=== PATIENT | male | born 1935 ===

== ENCOUNTER 2016-09-06 14:26 | Emergency (ER) | payer MEDICARE, OTHER ==
--- NOTE | 2016-09-06 14:34 | ED PDOC ---
Arrival/HPI - General Time Seen by Provider: 09/06/16 14:30 Historian: Patient - History of Present Illness Narrative History of Present Illness (Text): 09/06/16 14:31 80 y/o male, pmh including htn/hyperlipidemia/dm, nkda, c/o rt. heel pain x 1 month with no fall or trauma. Aching and sharp pain, non-radiating, aggravated by long hours of standing, no skin discoloration, no numbness or tingling, no fever or chills, no headache or night sweat, no palpitation, no other medical or psychological complaints. Past Medical History - Provider Review Nursing Documentation Reviewed: Yes - Past History Past History: No Previous - Infectious Disease Hx of Infectious Diseases: None - Tetanus Immunization Tetanus Immunization: Unknown - Cardiac Hx Hyperlipemia: Yes Hx Hypertension: Yes Hx Pacemaker: No - Neurological Hx Paralysis: No - HEENT Hx HEENT Disorder: ([place] uses hearing air left ear) - Endocrine/Metabolic Hx Diabetes Mellitus Type 2: Yes - Hematological/Oncological Hx Blood Transfusions: No - Musculoskeletal/Rheumatological Hx Back Pain: Yes Hx Falls: No - Psychiatric Hx Depression: No Hx Emotional Abuse: No Hx Physical Abuse: No Hx Substance Use: No - Past Surgical History Past Surgical History: No Previous - Surgical History Hx Orthopedic Surgery: Yes (right shoulder torn rotator cuff) - Anesthesia Hx Anesthesia Reactions: No Hx Malignant Hyperthermia: No - Suicidal Assessment Feels Threatened In Home Enviroment: No Family/Social History - Physician Review Nursing Documentation Reviewed: Yes Family/Social History: Unknown Family HX Smoking Status: Never Smoked Hx Alcohol Use: No Hx Substance Use: No Hx Substance Use Treatment: No Allergies/Home Meds Allergies/Adverse Reactions: Allergies No Known Allergies Allergy (Verified 07/08/12 13:39) Home Medications: Home Meds Medication Instructions Recorded Confirmed Atorvastatin Calcium 80 mg PO QPM 01/01/13 11/20/13 Multivitamin and Minerals1 1 tab PO DAILY 05/20/13 11/20/13 [Centrum] Insulin Glargine, Recombina 30 units SC DAILY 06/16/13 11/20/13 [Lantus] Metformin Hydrochloride [Metformin] 20,000 mg PO DAILY 10/04/13 11/20/13 Review of Systems - Review of Systems Constitutional: absent: Fatigue, Fevers Eyes: absent: Vision Changes ENT: absent: Hearing Changes Respiratory: absent: Cough, Sputum Cardiovascular: absent: Chest Pain Gastrointestinal: absent: Abdominal Pain, Nausea, Vomiting Musculoskeletal: Arthralgias. absent: Back Pain, Neck Pain, Joint Swelling, Myalgias Skin: absent: Rash, Pruritis, Skin Lesions, Laceration, Abscess, Ulcer, Cellulitis Neurological: absent: Headache, Dizziness, Focal Weakness Physical Exam Vital Signs Pulse Resp BP Pulse Ox 09/06/16 14:26 65 16 176/84 H 97 Pain Distress: Mild Mental Status: Positive for: Alert and Oriented X 3 - Systems Exam Head: Present: Atraumatic, Normocephalic Pupils: Present: PERRL Extroacular Muscles: Present: EOMI Conjunctiva: Present: Normal Mouth: Present: Moist Mucous Membranes Neck: Present: Normal Range of Motion Respiratory/Chest: Present: Clear to Auscultation, Good Air Exchange. No: Respiratory Distress, Accessory Muscle Use Cardiovascular: Present: Regular Rate and Rhythm, Normal S1, S2. No: Murmurs Abdomen: Present: Normal Bowel Sounds. No: Tenderness, Distention, Peritoneal Signs Back: Present: Normal Inspection Upper Extremity: Present: Normal Inspection. No: Cyanosis, Edema Lower Extremity: Present: Normal Inspection, Neurovascularly Intact, Capillary Refill < 2 s, Other (Rt. foot: +ttp on the plantar calcaneal region, skin intact , no laceration or abrasion, +DPPT pulsese, capillary refill< 2 seconds, neurovascular intact, negative karlo and sutton signs.). No: Edema, CALF TENDERNESS Neurological: Present: GCS=15, CN II-XII Intact, Speech Normal Skin: Present: Warm, Dry, Normal Color. No: Rashes Psychiatric: Present: Alert, Oriented x 3, Normal Insight, Normal Concentration Medical Decision Making ED Course and Treatment: 09/06/16 14:34 -rt. foot xray -tramadol 09/06/16 15:23 -xray show no fracture or dislocation but there is calcaneal spur. -Discharge home with hattie wrap, celebrex, avoid long hours of standing or excessive walking, follow up with your own pmd and product promoter sales person within 2 days, return to the ER for any new or worsening signs or symptoms. - RAD Interpretation Radiology Orders: 09/06/16 14:35 FOOT RIGHT 3 VIEWS ROUTINE [RAD] Stat PROCEDURE: Right Foot Radiographs. HISTORY: rt. foot sole heel pain x 1 month COMPARISON: None. FINDINGS: BONES: No fracture. Minute 1 mm inferior calcaneal spur. High plantar arch. Dorsal midfoot osseous hypertrophy. Hammertoe orientations. First metatarsal- phalangeal joint hypertrophic arthrosis with medial subcortical cyst. JOINTS: As above SOFT TISSUES: Normal. OTHER FINDINGS: None. IMPRESSION: No calcaneal fracture. Tiny inferior calcaneal spur. First metatarsal-phalangeal joint osteoarthrosis. 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 Disposition/Present on Arrival - Present on Arrival Any Indicators Present on Arrival: No History of DVT/PE: No History of Uncontrolled Diabetes: No Urinary Catheter: No History of Decub. Ulcer: No History Surgical Site Infection Following: None - Disposition Have Diagnosis and Disposition been Completed?: Yes Diagnosis: Plantar fasciitis, Calcaneal spur Disposition: HOME/ ROUTINE Disposition Time: 14:55 Patient Plan: Discharge Patient Problems: Current Active Problems Problem Status Onset Plantar fasciitis Acute Calcaneal spur Acute Condition: IMPROVED Additional Instructions: Discharge home with hattie wrap, celebrex, avoid long hours of standing or excessive walking, follow up with your own pmd and product promoter sales person within 2 days, return to the ER for any new or worsening signs or symptoms. Prescriptions: Celecoxib [CeleBREX] 100 mg PO BID PRN #14 cap PRN Reason: Other Referrals: Jacqueline Barba, [Primary Care Provider] - Follow up with primary Violet Hall DPM [Staff Provider] - Follow up with primary Forms: WORK NOTE
[2016-09-06 14:37] VITALS: BP 176/84
[2016-09-06] MEDS: TraMADol/Apap 37.5/325 mg Tab PO STA (15:16)
--- NOTE | 2016-09-06 15:20 | RAD ---
PROCEDURE: Right Foot Radiographs. HISTORY: rt. foot sole heel pain x 1 month COMPARISON: None. FINDINGS: BONES: No fracture. Minute 1 mm inferior calcaneal spur. High plantar arch. Dorsal midfoot osseous hypertrophy. Hammertoe orientations. First metatarsal-phalangeal joint hypertrophic arthrosis with medial subcortical cyst. JOINTS: As above SOFT TISSUES: Normal. OTHER FINDINGS: None. IMPRESSION: No calcaneal fracture. Tiny inferior calcaneal spur. First metatarsal-phalangeal joint osteoarthrosis.
[2016-09-06 15:41] VITALS: PULSE 66; RESP 17; O2SAT 98
[2016-10-21 09:51] VITALS: BMI 18.2
== END 2016-09-06 15:42 | disposition home or self-care (01) ==
LOC: ED 14:26
DX: M72.2 Plantar fascial fibromatosis (principal); M77.31 Calcaneal spur, right foot

== ENCOUNTER 2016-11-18 20:46 | Emergency (ER) | payer MEDICARE, OTHER ==
[2016-11-18 20:52] VITALS: TEMP 97.6; O2SAT 98
--- NOTE | 2016-11-18 21:11 | ED PDOC ---
Arrival/HPI - General Chief Complaint: Dizziness/Lightheaded Time Seen by Provider: 11/18/16 20:47 Historian: Patient - History of Present Illness Narrative History of Present Illness (Text): 11/18/16 21:07 Tomer Marquis is a 80 year old male, whose past medical history includes hypertension, hyperlipidemia, and diabetes, who presents to the Emergency department complaining of dizziness for the past 3 days. Patient describes dizziness as a room-spinning sensation. Patient denies any fever, chills, chest pain, shortness of breath, nausea, vomiting, diarrhea, urinary symptoms, back pain, neck pain, headache, or any other complaints. Time/Duration: < week (3 days) Symptom Onset: Gradual Symptom Course: Unchanged Activities at Onset: Rest, Light Context: Home Past Medical History - Provider Review Nursing Documentation Reviewed: Yes - Past History Past History: No Previous - Infectious Disease Hx of Infectious Diseases: None - Tetanus Immunization Tetanus Immunization: Unknown - Cardiac Hx Hypertension: Yes Hx Pacemaker: No - Neurological Hx Paralysis: No - HEENT Hx HEENT Disorder: ([place] uses hearing air left ear) - Endocrine/Metabolic Hx Diabetes Mellitus Type 2: Yes - Hematological/Oncological Hx Blood Transfusions: No - Musculoskeletal/Rheumatological Hx Back Pain: Yes Hx Falls: No - Psychiatric Hx Depression: No Hx Emotional Abuse: No Hx Physical Abuse: No Hx Substance Use: No - Past Surgical History Past Surgical History: No Previous - Surgical History Hx Orthopedic Surgery: Yes (right shoulder torn rotator cuff) - Anesthesia Hx Anesthesia: Yes Hx Anesthesia Reactions: No Hx Malignant Hyperthermia: No - Suicidal Assessment Feels Threatened In Home Enviroment: No Family/Social History - Physician Review Nursing Documentation Reviewed: Yes Family/Social History: Unknown Family HX Smoking Status: Never Smoked Hx Alcohol Use: No Hx Substance Use: No Hx Substance Use Treatment: No Allergies/Home Meds Allergies/Adverse Reactions: Allergies No Known Allergies Allergy (Verified 07/08/12 13:39) Home Medications: Home Meds Medication Instructions Recorded Confirmed Aspirin [Ecotrin] 81 mg PO DAILY 11/18/16 11/18/16 Atorvastatin Calcium 80 mg PO DAILY 11/18/16 11/18/16 GlipiZIDE [Glipizide] 20 mg PO BID 11/18/16 11/18/16 amLODIPine [Norvasc] 5 mg PO DAILY 11/18/16 11/18/16 Review of Systems - Physician Review All systems were reviewed & negative as marked: Yes - Review of Systems Constitutional: Normal. absent: Fevers Eyes: Normal ENT: Normal Respiratory: Normal. absent: SOB, Cough Cardiovascular: Normal. absent: Chest Pain Gastrointestinal: Normal. absent: Abdominal Pain, Diarrhea, Nausea, Vomiting Genitourinary Male: Normal. absent: Dysuria, Frequency, Hematuria, Urinary Output Changes Musculoskeletal: Normal. absent: Back Pain, Neck Pain Skin: Normal Neurological: Dizziness Endocrine: Normal Hemo/Lymphatic: Normal Psychiatric: Normal Physical Exam Vital Signs Reviewed: Yes Vital Signs Temp Pulse Resp BP Pulse Ox 11/18/16 22:38 97.6 F 56 L 18 153/89 H 98 11/18/16 20:48 97.6 F 86 19 197/76 H 98 Temperature: Afebrile Blood Pressure: Hypertensive Pulse: Regular Respiratory Rate: Normal Appearance: Positive for: Well-Appearing, Non-Toxic, Comfortable Pain Distress: None Mental Status: Positive for: Alert and Oriented X 3 - Systems Exam Head: Present: Atraumatic, Normocephalic Pupils: Present: PERRL Extroacular Muscles: Present: EOMI Conjunctiva: Present: Normal Ears: Present: Normal, NORMAL TM, Normal Canal. No: Erythema, TM Bulging, Fluid Mouth: Present: Moist Mucous Membranes Pharnyx: Present: Normal. No: ERYTHEMA, EXUDATE, TONSILS ENLARGED, Peritonsilar Swelling, Uvular Deviation, Muffled/Hoarse Voice, Strider, Soft Palate/Uvular Edema Nose (Internal): Present: Normal Inspection Neck: Present: Normal Range of Motion Respiratory/Chest: Present: Clear to Auscultation, Good Air Exchange. No: Respiratory Distress, Accessory Muscle Use Cardiovascular: Present: Regular Rate and Rhythm, Normal S1, S2. No: Murmurs Abdomen: Present: Normal Bowel Sounds. No: Tenderness, Distention, Peritoneal Signs Back: Present: Normal Inspection Upper Extremity: Present: Normal Inspection. No: Cyanosis, Edema Lower Extremity: Present: Normal Inspection. No: Edema Neurological: Present: GCS=15, CN II-XII Intact, Speech Normal Skin: Present: Warm, Dry, Normal Color. No: Rashes Psychiatric: Present: Alert, Oriented x 3, Normal Insight, Normal Concentration Medical Decision Making ED Course and Treatment: 07/08/17 21:07 Impression: 80 year old male complaining of dizziness. Differential Diagnosis included but are not limited to: vertigo Plan: -- CT Head w/o contrast -- EKG -- Labs, troponin -- Antivert -- Reassess and disposition Prior Visits: Notes and results from previous visits were reviewed. On 09/06/2016, pt was seen in the Emergency department for right heal pain. Pt was d/c home. Progress Notes: Reviewed EKG, NSR at [address]-segment elevations or depressions, no T-wave inversions, normal intervals. 11/18/16 22:38 Reviewed radiology, CT Head shows: 1. No definite acute intracranial abnormality. Acute infarction may be CT occult within first 24 hours. If a focal deficit persists, consider followup CT or MRI for further evaluation. 2. Incidental/non-acute findings are described above. 11/18/16 23:15 On re-evaluation, the patient feels better and is in no acute distress. Dizziness has resolved. I have discussed the results and plan with the patient, who expresses understanding. Patient in agreement with plan to discharged home. Patient is stable for discharge. Patient was instructed to follow up with physician/clinic in 1-2 days or return if symptoms worsen or new concerning symptoms arise. Re-evaluation Time: 23:18 Reassessment Condition: Re-examined, Improved - Lab Interpretations Lab Results: 11/18/16 21:15 11/18/16 21:15 Lab Results 11/18/16 21:15: Sodium 136, Potassium 4.4, Chloride 100, Carbon Dioxide 26, Anion Gap 14, BUN 37 H, Creatinine 1.6 H, Est GFR ( Amer) 51, Est GFR ( Non-Af Amer) 42, Random Glucose 261 H, Calcium 9.2, Total Bilirubin 0.6, AST 26 , ALT 42, Alkaline Phosphatase 70, Troponin I < 0.01, Total Protein 7.5, Albumin 4.1, Globulin 3.3, Albumin/Globulin Ratio 1.2 11/18/16 21:15: WBC 7.1, RBC 4.02, Hgb 12.1 L, Hct 35.9 L, MCV 89.3, MCH 30.1, MCHC 33.7, RDW 12.3, Plt Count 207, MPV 10.2, Neutrophils % (Manual) 51, Band Neutrophils % 1, Lymphocytes % (Manual) 22, Atypical Lymphs % 0, Monocytes % ( Manual) 3, Eosinophils % (Manual) 23 H, Immature Lymphocytes 0 I have reviewed the lab results: Yes - RAD Interpretation Narrative RAD Interpretations (Text): CT Head shows: Brain: [id number]-us-[id number] atrophy. No intracranial hemorrhage. No mass. No definite edema. Ventricles: No hydrocephalus. Bones/joints: No acute fracture. Soft tissues: Unremarkable. Vasculature: Mild atherosclerotic disease of intracranial arteries. Sinuses: No acute sinusitis. Mastoid air cells: No mastoid effusion. Orbits: Small radiopaque along periphery of RIGHT globe, likely postsurgical. Clinical correlation is needed. IMPRESSION: 1. No definite acute intracranial abnormality. Acute infarction may be CT occult within first 24 hours. If a focal deficit persists, consider followup CT or MRI for further evaluation. 2. Incidental/non-acute findings are described above. Radiology Orders: 11/18/16 21:07 HEAD W/O CONTRAST [CT] Stat Paratransit Operator: Radiologist - EKG Interpretation Interpreted by ED Physician: Yes Type: 12 lead EKG - Medication Orders Current Medication Orders: Discontinued Medications Meclizine HCl (Antivert) 25 mg PO STAT STA Stop: 11/18/16 21:09 Last Admin: 11/18/16 21:39 Dose: 25 mg - Scribe Statement The provider has reviewed the documentation as recorded by the Javier Alba All medical record entries made by the Javier were at my direction and personally dictated by me. I have reviewed the chart and agree that the record accurately reflects my personal performance of the history, physical exam, medical decision making, and the department course for this patient. I have also personally directed, reviewed, and agree with the discharge instructions and disposition. Disposition/Present on Arrival - Present on Arrival Any Indicators Present on Arrival: No History of DVT/PE: No History of Uncontrolled Diabetes: No Urinary Catheter: No History of Decub. Ulcer: No History Surgical Site Infection Following: None - Disposition Have Diagnosis and Disposition been Completed?: Yes Diagnosis: Vertigo, labyrinthine Disposition: HOME/ ROUTINE Disposition Time: 23:18 Patient Problems: Current Active Problems Problem Status Onset Vertigo, labyrinthine Acute Condition: GOOD Discharge Instructions (ExitCare): Vertigo (ED) Print Language: JAPANESE Prescriptions: Meclizine [Antivert] 25 mg PO TID #21 tab Referrals: PCP,NO [Primary Care Provider] - Follow up with primary
[2016-11-18 21:38] LABS: ALB/GLOB RATIO 1.2 (1.1-1.8); ALBUMIN 4.1 g/dL (3.0-4.8); ALT/SGPT 42 U/L (7-56); AST/SGOT 26 U/L (15-59); BLOOD UREA NITROGEN 37 mg/dL (7-21); CALCIUM 9.2 mg/dL (8.4-10.5); GFR AFRICAN-AMERICAN 51; GFR NON-AFRICAN AMERICAN 42
[2016-11-18 21:53] LABS: TROPONIN I < 0.01 ng/mL
[2016-11-18 21:55] LABS: HEMOGLOBIN 12.1 gm/dL (14.0-18.0); MEAN CELL VOLUME 89.3 fL (80.0-105.0); MEAN CORPUSCULAR HEMOGLOBIN 30.1 pg (25.0-35.0); MEAN CORPUSCULAR HGB CONC 33.7 g/dl (31.0-37.0); MEAN PLATELET VOLUME 10.2 fl (7.0-11.0); PLATELET COUNT 207 10^3/uL (120.0-450.0); RBC 4.02 10^6/uL (3.5-6.1); RED CELL DISTRIBUTION WIDTH 12.3 % (11.5-14.5); WHITE BLOOD COUNT 7.1 10^3/ul (4.5-11.0)
[2016-11-18 22:24] LABS: BAND 1 % (0-2); NEUTROPHIL 51 % (50.0-70.0)
--- NOTE | 2016-11-18 22:24 | CT ---
EXAM: CT Head Without Intravenous Contrast CLINICAL HISTORY: 80 years old, male; Signs and symptoms; Dizziness; Patient HX: Dizzy TECHNIQUE: Axial computed tomography images of the head/brain without intravenous contrast. This CT exam was performed using one or more of the following dose reduction techniques: automated exposure control, adjustment of the mA and/or kV according to patient size, and/or use of iterative reconstruction technique. COMPARISON: No relevant prior studies available. FINDINGS: Brain: [id number] atrophy. No intracranial hemorrhage. No mass. No definite edema. Ventricles: No hydrocephalus. Bones/joints: No acute fracture. Soft tissues: Unremarkable. Vasculature: Mild atherosclerotic disease of intracranial arteries. Sinuses: No acute sinusitis. Mastoid air cells: No mastoid effusion. Orbits: Small radiopaque along periphery of RIGHT globe, likely postsurgical. Clinical correlation is needed. IMPRESSION: 1. No definite acute intracranial abnormality. Acute infarction may be CT occult within first 24 hours. If a focal deficit persists, consider followup CT or MRI for further evaluation. 2. Incidental/non-acute findings are described above.
[2016-11-18 22:25] LABS: ATYPICAL LYMPHOCYTE 0 % (0.0-0.0); EOSINOPHIL 23 % (0.0-3.0); LYMPHOCYTE 22 % (22.0-35.0); MONOCYTE 3 % (1.0-6.0)
[2016-11-18 23:02] VITALS: BMI 22.0
[2016-11-18 23:27] VITALS: BP 166/86; PULSE 60; RESP 16
--- NOTE | 2016-11-19 08:50 | CARD ---
APPROVED REPORT EKG Measurement Heart [id number] <Conclusion> Normal sinus rhythm LAD C/W ECG 06/24/14: no APC's now
== END 2016-11-18 23:27 | disposition home or self-care (01) ==
LOC: ED 20:46
DX: R42 Dizziness and giddiness (principal); H83.90 Unspecified disease of inner ear, unspecified ear; E78.5 Hyperlipidemia, unspecified; I10 Essential (primary) hypertension; E11.9 Type 2 diabetes mellitus without complications

== ENCOUNTER 2017-05-23 10:02 | Inpatient (IN) | payer MEDICARE, OTHER ==
[2017-05-23 10:03] VITALS: BMI 22.0
--- NOTE | 2017-05-23 10:45 | ED PDOC ---
Arrival/HPI - General Chief Complaint: Chest Pain Time Seen by Provider: 05/23/17 10:17 Historian: Patient - History of Present Illness Narrative History of Present Illness (Text): 05/23/17 10:20 Tomer Marquis is an 81 year old male, whose past medical history includes diabetes and hypertension, who presents to the emergency department complaining of constant sharp left-sided chest pain that radiates down left arm since waking up at 05:00 this morning. Patient denies any shortness of breath, pain with breathing, or any other complaints at this time. Time/Duration: 4-6 hours Symptom Course: Unchanged Severity Level: Mild Activities at Onset: Rest Context: Home Past Medical History - Provider Review Nursing Documentation Reviewed: Yes - Past History Past History: No Previous - Infectious Disease Hx of Infectious Diseases: None - Tetanus Immunization Tetanus Immunization: Unknown - Cardiac Hx Cardiac Disorders: Yes Hx Hypertension: Yes Hx Pacemaker: No - Pulmonary Hx Respiratory Disorders: No - Neurological Hx Neurological Disorder: No Hx Paralysis: No - HEENT Hx HEENT Disorder: No ([place] uses hearing air left ear) - Renal Hx Renal Disorder: No - Endocrine/Metabolic Hx Endocrine Disorders: Yes Hx Diabetes Mellitus Type 2: Yes - Hematological/Oncological Hx Blood Disorders: No Hx Blood Transfusions: No - Integumentary Hx Dermatological Disorder: No - Musculoskeletal/Rheumatological Hx Back Pain: Yes Hx Falls: No - Gastrointestinal Hx Gastrointestinal Disorders: No - Genitourinary/Gynecological Hx Genitourinary Disorders: No - Psychiatric Hx Psychophysiologic Disorder: No Hx Depression: No Hx Emotional Abuse: No Hx Physical Abuse: No Hx Substance Use: No - Past Surgical History Past Surgical History: No Previous - Surgical History Hx Orthopedic Surgery: Yes (right shoulder torn rotator cuff) - Anesthesia Hx Anesthesia: Yes Hx Anesthesia Reactions: No Hx Malignant Hyperthermia: No - Suicidal Assessment Feels Threatened In Home Enviroment: No Family/Social History - Physician Review Nursing Documentation Reviewed: Yes Family/Social History: No Known Family HX Smoking Status: Never Smoked Hx Alcohol Use: No Hx Substance Use: No Hx Substance Use Treatment: No Allergies/Home Meds Allergies/Adverse Reactions: Allergies No Known Allergies Allergy (Verified 05/23/17 10:17) Home Medications: Home Meds Medication Instructions Recorded Confirmed Aspirin [Ecotrin] 81 mg PO DAILY 11/18/16 11/18/16 Atorvastatin Calcium 80 mg PO DAILY 11/18/16 11/18/16 GlipiZIDE [Glipizide] 20 mg PO BID 11/18/16 11/18/16 amLODIPine [Norvasc] 5 mg PO DAILY 11/18/16 11/18/16 Review of Systems - Review of Systems Constitutional: absent: Fatigue, Fevers, Night Sweats Eyes: absent: Vision Changes ENT: absent: Hearing Changes Respiratory: absent: SOB, Cough Cardiovascular: Chest Pain. absent: Calf Pain, YIN Gastrointestinal: absent: Abdominal Pain Genitourinary Male: absent: Dysuria, Frequency Musculoskeletal: Other (shoulder pain). absent: Arthralgias Skin: absent: Rash, Pruritis Neurological: absent: Headache, Dizziness Endocrine: absent: Diaphoresis, Polydipsia Hemo/Lymphatic: absent: Adenopathy, Easy Bleeding Psychiatric: absent: Anxiety, Depression Physical Exam - Physical Exam Narrative Physical Exam (Text): Head: Atraumatic. Normocephalic. Eyes: PERRL. EOMI. Conjunctivae are not pale. ENT: Mucous membranes are moist and intact. Oropharynx is clear and symmetric. Neck: Supple. Full ROM. No JVD. No lymphadenopathy. Cardiovascular: Regular rate. Regular rhythm. No murmurs, rubs, or gallops. Distal pulses are 2+ and symmetric. Palpable left anterior chest wall pain. Pulmonary/Chest: No evidence of respiratory distress. Clear to auscultation bilaterally. No wheezing, rales or rhonchi. Abdominal: Soft and non-distended. There is no tenderness. No rebound, guarding, or rigidity. No organomegaly. Good bowel sounds. Back: No CVA tenderness. Extremities: No edema. No cyanosis. No clubbing. Full range of motion in all extremities. No calf tenderness. No pain with shoulder rotation or palpation. Strong and equal radial pulses. Rectal: no gross bleeding Skin: Skin is warm and dry. No petechiae. No purpura. Neurological: Alert, awake, and oriented to person, place, time, and situation. Normal speech. Motor and sensory exam intact. Psychiatric: Good eye contact. Normal interaction, affect, and behavior. Vital Signs Reviewed: Yes Vital Signs Temp Pulse Pulse Resp BP Pulse Ox 05/23/17 12:03 73 18 163/85 H 98 05/23/17 11:55 69 18 135/79 99 05/23/17 11:03 68 01/10/18 10:44 98.4 F 82 16 138/81 99 Temperature: Afebrile Blood Pressure: Hypertensive Appearance: Positive for: Uncomfortable Pain Distress: Moderate Medical Decision Making ED Course and Treatment: 05/23/17 10:20 Impression: 81 year old male complaining of constant, sharp left-sided chest pain that radiates down left arm since waking up at 05:00 this morning Differential Diagnosis included but are not limited to: MO, cad, muscular pain , acs Plan: -- EKG -- Chest X-ray -- Labs -- Aspirin -- Reassess and disposition Prior Visits: Notes and results from previous visits were reviewed. Patient was last seen in the emergency department on 11/18/16 for dizziness for 3 days. Patient was discharged home. Progress Notes: Patient reports history of chest pain since 530 am. He initially states chest pain constant since this morning, but later tells me that he had chest pain when shoveling yesterday. EKG: Ordered, reviewed, and independently interpreted the EKG. Rate : 84 BPM Rhythm : NSR Interpretation : No Acute ST-T elevations. Pain persistent on re-evaluation. Troponin elevated. Case d/w on-call PMD as patient with no primary at [place], Dr. Ramos from cardiology consulted. Pain improved but persistent after SL ntg. Betablocker, plavix ordered. patient took asa. Repeat EKG with no acute st elevations. Heparin initiated. Patient admitted to Dr. Schuster service, patient taken to manufacturing lab technician with Dr. Ramos. - Critical Care Critical Care Minutes: 30 minutes - Lab Interpretations Lab Results: 05/23/17 11:00 05/23/17 11:00 Lab Results 05/23/17 11:00: Sodium 137, Potassium 4.5, Chloride 102, Carbon Dioxide 22, Anion Gap 18, BUN 29 H, Creatinine 1.7 H, Est GFR ( Amer) 47, Est GFR ( Non-Af Amer) 39, Random Glucose 311 H*, Calcium 9.4, Total Bilirubin 0.6, AST 41 , ALT 43, Alkaline Phosphatase 70, Lactate Dehydrogenase 602, Total Creatine Kinase 380 H, CK-MB (CK-2) 12.5 H, CK-MB (CK-2) % 3.3 H, Troponin I 1.77 H* D, Total Protein 7.7, Albumin 4.3, Globulin 3.4, Albumin/Globulin Ratio 1.3 05/23/17 11:00: PT 13.2 H, INR 1.14 H, APTT 30.8 05/23/17 11:00: WBC 7.2, RBC 4.13, Hgb 12.6 L, Hct 37.0 L, MCV 89.6, MCH 30.5, MCHC 34.1, RDW 12.3, Plt Count 220, MPV 9.7, Gran % 52.3, Lymph % (Auto) 18.7 L , [place] % (Auto) 5.5, Eos % (Auto) 22.8 H, Baso % (Auto) 0.7, Gran # 3.74, Lymph # 1.3, [place] # 0.4, Eos # 1.6 H, Baso # 0.05, Neutrophils % (Manual) 54, Lymphocytes % (Manual) 20 L, Monocytes % (Manual) 4, Eosinophils % (Manual) 22 H , Platelet Evaluation Normal I have reviewed the lab results: Yes - RAD Interpretation Radiology Orders: 05/23/17 10:38 CHEST PORTABLE [RAD] Stat Visual Merchandising Specialist: Radiologist - EKG Interpretation Interpreted by ED Physician: Yes Type: 12 lead EKG - Medication Orders Current Medication Orders: Aspirin (Ecotrin) 81 mg PO DAILY [facility] Atorvastatin Calcium (Lipitor) 40 mg PO DIN TOO Clopidogrel Bisulfate (Plavix) 75 mg PO DAILY [facility] Sodium Chloride (Sodium Chloride 0.9%) 1,000 mls @ 100 mls/hr IV .Q10H [facility] Stop: 05/23/17 21:00 Insulin Human Lispro (Humalog Med) 0 units SC ACHS [facility] PRN Reason: Protocol Meclizine HCl (Antivert) 25 mg PO TID TOO Metoprolol Tartrate (Lopressor) 25 mg PO ACBD [facility] Discontinued Medications Aspirin (Aspirin Chewable) 81 mg PO STAT STA Stop: 05/23/17 10:40 Last Admin: 05/23/17 10:52 Dose: Clopidogrel Bisulfate (Plavix) 600 mg PO STAT STA Stop: 05/23/17 11:55 Last Admin: 05/23/17 12:03 Dose: 600 mg Heparin Sodium (Porcine) (Heparin) 5,100 units 70 units/kg (5100 units) IV ONCE ONE PRN Reason: Protocol Stop: 05/23/17 11:53 Last Admin: 05/23/17 12:08 Dose: 5,100 units eMAR Start Stop Document 05/23/17 12:08 HI (Rec: 05/23/17 12:08 [id number]) Intravenous Solution Start Date 05/23/17 Start Time 12:08 Heparin Sodium/Sodium Chloride (Heparin 68267 Units/250ml 1/2 Normal Saline) 25 ,000 units in 250 mls @ 8.709 mls/hr IV .Q24H TOO; 12 UNITS/KG/HR PRN Reason: Protocol Last Admin: 05/23/17 12:13 Dose: 8.709 mls/hr eMAR Start Stop Document 05/23/17 12:13 HI (Rec: 05/23/17 12:13 [id number]) Intravenous Solution Start Date 05/23/17 Start Time 12:13 Metoprolol Tartrate (Lopressor) 25 mg PO STAT STA Stop: 05/23/17 11:47 Last Admin: 05/23/17 12:03 Dose: 25 mg MAR Pulse and Blood Pressure Document 05/23/17 12:03 HI (Rec: 05/23/17 12:03 [id number]) Pulse Pulse Rate (60-90 beats/min) 74 Blood Pressure Blood Pressure (100/60-150/90 mm Hg) 163/85 Nitroglycerin (Nitrostat Sl Tab) 0.4 mg SL STAT STA Stop: 05/23/17 12:06 Last Admin: 05/23/17 12:10 Dose: 0.4 mg - Scribe Statement The provider has reviewed the documentation as recorded by the Javier Toney Provider Scribe Attestation: All medical record entries made by the Tomásiblatonya were at my direction and personally dictated by me. I have reviewed the chart and agree that the record accurately reflects my personal performance of the history, physical exam, medical decision making, and the department course for this patient. I have also personally directed, reviewed, and agree with the discharge instructions and disposition. Disposition/Present on Arrival - Present on Arrival Any Indicators Present on Arrival: No History of DVT/PE: No History of Uncontrolled Diabetes: No Urinary Catheter: No History of Decub. Ulcer: No History Surgical Site Infection Following: None - Disposition Have Diagnosis and Disposition been Completed?: Yes Diagnosis: Acute myocardial infarction, Renal insufficiency, Hyperglycemia Disposition: HOSPITALIZED Disposition Time: 13:00 Patient Plan: Admission, ICU Patient Problems: Current Active Problems Problem Status Onset Acute myocardial infarction Acute Condition: CRITICAL
[2017-05-23 11:18] LABS: BASO # 0.05 K/mm3 (0.0-2.0); BASO % 0.7 % (0.0-3.0); EOS # 1.6 (0.0-0.7); EOS % 22.8 % (1.5-5.0); GRAN # 3.74 (1.4-6.5); GRAN % 52.3 % (50.0-68.0); HEMOGLOBIN 12.6 g/dL (14.0-18.0); LYMPH # 1.3 (1.2-3.4); LYMPH % 18.7 % (22.0-35.0); MEAN CELL VOLUME 89.6 fl (80.0-105.0); MEAN CORPUSCULAR HEMOGLOBIN 30.5 pg (25.0-35.0); MEAN CORPUSCULAR HGB CONC 34.1 g/dl (31.0-37.0); MEAN PLATELET VOLUME 9.7 fl (7.0-11.0); MONO # 0.4 (0.1-0.6); MONO % 5.5 % (1.0-6.0); PLATELET COUNT 220 10^3/uL (120.0-450.0); RBC 4.13 10^6/uL (3.5-6.1); RED CELL DISTRIBUTION WIDTH 12.3 % (11.5-14.5); WHITE BLOOD COUNT 7.2 10^3/ul (4.5-11.0)
[2017-05-23 11:34] LABS: INR 1.14 (0.93-1.08); PARTIAL THROMBOPLASTIN TIME 30.8 Seconds (25.1-36.5); PROTHROMBIN TIME 13.2 SECONDS (9.4-12.5)
[2017-05-23 11:45] LABS: ALB/GLOB RATIO 1.3 (1.1-1.8); ALBUMIN 4.3 g/dL (3.0-4.8); CALCIUM 9.4 mg/dL (8.4-10.5); TROPONIN I 1.77 ng/mL
[2017-05-23 11:54] LABS: EOSINOPHIL 22 % (0.0-3.0); LYMPHOCYTE 20 % (22.0-35.0); MONOCYTE 4 % (1.0-6.0); NEUTROPHIL 54 % (50.0-70.0)
[2017-05-23] MEDS ORDERED: Nitroglycerin 50mg in D5W 250 ML IV PRN (11:54)
[2017-05-23 11:55] LABS: PLATELET ESTIMATE NORMAL (NORMAL)
[2017-05-23] MEDS ORDERED: Nitroglycerin 50mg in D5W 50 MG/250 ML BOTTLE IV PRN (11:57)
[2017-05-23] MEDS ORDERED: Heparin25000 units/250ml 1/2NS 25,000 UNITS/250 ML BAG IV SCH (12:00)
[2017-05-23 12:13] LABS: CK MB% 3.3 % (2.5-3.0); CK-MB 12.5 ng/mL (0.0-3.6)
[2017-05-23] MEDS ORDERED: Sodium Bicarbonate (8.4%) 50 Meq Syringe IVP ONE ×2 (12:20→12:36)
[2017-05-23] MEDS ORDERED: Acetylcysteine 20% Inhal Sol (30ml) ONE ×2 (12:25)
--- NOTE | 2017-05-23 12:32 | RAD ---
HISTORY: chest pain COMPARISON: 05/20/2013 FINDINGS: LUNGS: No active pulmonary disease. PLEURA: No significant pleural effusion identified, no pneumothorax apparent. CARDIOVASCULAR: Normal. OSSEOUS STRUCTURES: No significant abnormalities. VISUALIZED UPPER ABDOMEN: Normal. OTHER FINDINGS: None. IMPRESSION: No active disease.
[2017-05-23] MEDS ORDERED: Lidocaine 2% Inj (20ml) ONE (12:34)
[2017-05-23] MEDS ORDERED: HEPARIN SODIUM/NS 2,000 ML IV ONE (12:35)
[2017-05-23] MEDS ORDERED: Iodixanol 320 MG/ML 200 ML BOTTLE IV ONE (12:35)
[2017-05-23] MEDS ORDERED: Nitroglycerin 50mg in D5W 0 MG/0 ML BOTTLE IV ONE (12:35)
[2017-05-23] MEDS ORDERED: Midazolam 2 MG/2 ML VIAL ONE ×2 (12:35→14:33)
--- NOTE | 2017-05-23 14:36 | CP.PCM.HP ---
History of Present Illness - History of Present Illness History of Present Illness: Samantha Junior, PGY1, Medicine H&P for Dr Schuster: CC: chest pain 81 year old male, whose past medical history includes diabetes, hypertension, low back pain, presents for left sided chest pain that started 9 hours ago. Pt describes it pressure like, 6-8/10, radiating to left neck and left arm. Denies associated sob, diaphoresis, nausea, vomiting, abdominal pain, palpitations. Denies previous such chest pain, trauma at the site, stress test or catheterization. In ED, pt hypertensive with SBP in 160s, trop elevated 1.77, given asa 325 mg, plavix loading dose 600 mg, NTG, Metoprolol [address] on NC[address] Dr Ramos evaluated pt and took to cardiac cath. Pt still c/o chest pain, states that he was in his usual state of health prior to coming to the chest pain this AM. Denies dizziness, headache, abdominal pain, nausea, vomiting, urinary symptoms, heat/ cold intolerance. 12 ROS neg, except as noted per HPI. PMH: DM (requiring home insulin), HTN, HLD PSH: right shoulder and lumbar surgeries (2013) All: NKA FH: brother, DM SH: Lives by self. Denies ETOH/tobacco/drug use. Home Meds: Insulin, other per Med Rec [facility]: [facility], in [place], [place] PMD: in [place] - Dr Holloway? Present on Admission - Present on Admission Any Indicators Present on Admission: No History of DVT/PE: No History of Uncontrolled Diabetes: No Urinary Catheter: No Decubitus Ulcer Present: No Review of Systems - Review of Systems All systems: reviewed and no additional remarkable complaints except Review of Systems: as per hpi Past Patient History - Infectious Disease Hx of Infectious Diseases: None - Tetanus Immunizations Tetanus Immunization: Unknown - Past Social History Smoking Status: Never Smoked - CARDIAC Hx Cardiac Disorders: Yes Hx Hypertension: Yes Hx Pacemaker: No - PULMONARY Hx Respiratory Disorders: No - NEUROLOGICAL Hx Neurological Disorder: No Hx Paralysis: No - HEENT Hx HEENT Problems: No ([place] uses hearing air left ear) - RENAL Hx Chronic Kidney Disease: No - ENDOCRINE/METABOLIC Hx Endocrine Disorders: Yes Hx Diabetes Mellitus Type 2: Yes - HEMATOLOGICAL/ONCOLOGICAL Hx Blood Disorders: No Hx Blood Transfusions: No - INTEGUMENTARY Hx Dermatological Problems: No - MUSCULOSKELETAL/RHEUMATOLOGICAL Hx Back Pain: Yes Hx Falls: No - GASTROINTESTINAL Hx Gastrointestinal Disorders: No - GENITOURINARY/GYNECOLOGICAL Hx Genitourinary Disorders: No - PSYCHIATRIC Hx Psychophysiologic Disorder: No Hx Depression: No Hx Emotional Abuse: No Hx Physical Abuse: No Hx Substance Use: No - SURGICAL HISTORY Hx Orthopedic Surgery: Yes (right shoulder torn rotator cuff) - ANESTHESIA Hx Anesthesia: Yes Hx Anesthesia Reactions: No Hx Malignant Hyperthermia: No Meds Allergies/Adverse Reactions: Allergies Allergy/AdvReac Type Severity Reaction Status Date / Time No Known Allergies Allergy Verified 05/23/17 10:17 Physical Exam - Constitutional Appears: Non-toxic - Head Exam Head Exam: ATRAUMATIC, NORMOCEPHALIC - Eye Exam Eye Exam: EOMI, PERRL Pupil Exam: PERRL - ENT Exam ENT Exam: Mucous Membranes Moist - Neck Exam Neck exam: Positive for: Full Rom - Respiratory Exam Respiratory Exam: Clear to Auscultation Bilateral. absent: Accessory Muscle Use , Rhonchi, Wheezes, Respiratory Distress - Cardiovascular Exam Cardiovascular Exam: RRR, +S1, +S2. absent: Systolic Murmur - GI/Abdominal Exam GI & Abdominal Exam: Normal Bowel Sounds, Soft. absent: Organomegaly, Tenderness - Extremities Exam Extremities exam: Positive for: normal inspection. Negative for: calf tenderness, pedal edema - Neurological Exam Neurological exam: Alert, Oriented x3 - Psychiatric Exam Psychiatric exam: Normal Affect, Normal Mood - Skin Skin Exam: Dry, Normal Color, Warm Results - Vital Signs Recent Vital Signs: Last Vital Signs Temp 98.4 F 05/23/17 10:44 Pulse 74 05/23/17 12:03 Resp 18 05/23/17 12:03 BP 163/85 H 05/23/17 12:03 Pulse Ox 98 05/23/17 12:03 - Labs Result Diagrams: 05/23/17 11:00 05/23/17 11:00 Assessment & Plan - Assessment and Plan (Free Text) Assessment: 81 years old male with PMH HTN, HLD, DM, presents for chest pain: Chest pain: 2/2 ACS, NSTEMI - No EKG changes, elevated trop, f/u serial trops and EKG. - Given ASA 325 mg, ntg, eparin and plavix loading dose, started on NTG and heparin drip. - In Cardiac cath with Dr Ramos, f/u results and recs. - TSH, lipid panel, hgb A1c, BNP - Start ASA 81, BB, statin, Plavix, - F/u echo - Dr Ramos on board. Appreciate recs. Elevated blood glucose: - BG 311 in ED - Has hx of htn - Obtain Hgb A1C - ISS Hx of HTN, HLD: - C/w statin and BB PPX: Protonix, heparin drip Case discussed with Dr Schuster. Samantha Junior, PGY1 - Date & Time Date: 05/23/17 Time: 14:38
[2017-05-23] MEDS ORDERED: Eptifibatide 0.75 mg/ml 75 MG/100 ML BOTTLE IV ONE (14:46)
[2017-05-23] MEDS ORDERED: Eptifibatide 20 mg/10mL Inj IVP ONE (14:46)
[2017-05-23] MEDS ORDERED: Iohexol 350mgl/ml 50 ML ONE (14:50)
[2017-05-23] MEDS ORDERED: Sodium Chloride 0.9% 1,000 ML IV SCH (15:30)
[2017-05-23] MEDS ORDERED: Pantoprazole 40 mg EC Tab PO SCH (16:00)
[2017-05-23] MEDS: Insulin Lispro (humaLOG) MEDIUM Coverage SC SCH ×2 (16:30→22:15)
[2017-05-23 17:00] LABS: CK MB% 3.4 % (2.5-3.0); CK-MB 11.3 ng/mL (0.0-3.6); TROPONIN I 3.62 ng/mL
[2017-05-23 22:26] LABS: CK-MB 9.3 ng/mL (0.0-3.6); TROPONIN I 4.38 ng/mL
--- NOTE | 2017-05-24 01:30 | CARDCATH ---
PROCEDURE DATE: 05/23/2017 CARDIAC CATHETERIZATION AND PERCUTANEOUS TRANSLUMINAL CORONARY ANGIOPLASTY HISTORY: The patient is an 81-year-old male with multiple cardiac risk factors including hypertension and diabetes mellitus, who presents with abdominal pain and nausea. He was found to have elevated troponins. Because of his non-STEMI, the patient is brought to the cardiac veterinary laboratory technician. Patient was preloaded with aspirin, Plavix as well as IV bicarb because of his renal insufficiency. PROCEDURE: Left heart catheterization with coronary arteriography and left ventriculogram followed by percutaneous transluminal coronary angioplasty and stent of the RCA. I performed moderate sedation, which included the presence of an independent trained observer that assisted in monitoring the patient's level of consciousness and physiologic status. After administration of Versed and fentanyl, my intra service time was 30 minutes. Findings on catheterization revealed a right dominant circulation. The RCA revealed a 90% stenosis with a lucency noted consistent with a coronary lesion as well as a possible intracoronary thrombus. The left main artery was unremarkable. The circumflex artery and obtuse marginal branches revealed intimal irregularities. At the takeoff of the of the obtuse marginal branch, there was a 50% to 60% stenosis noted. The LAD revealed diffuse atherosclerosis and was subtotally occluded in its midportion involving and diagonal branch as well. LV function revealed mild anterior wall hypokinesis. The patient was started on intravenous Integrilin with two boluses and a drip. The ACT at the beginning of the procedure was 220. The guiding catheter was placed in the ostium of the RCA. An 0.014 ATW wire was used to cross the critical lesion. A 4.0 x 12 mm drug-eluting stent was placed and deployed at 60 atmospheres of pressure. Repeat coronary arteriography revealed an excellent result with resolution of the lesion and MYNOR III flow down the RCA. Manual compression was used to close the femoral artery site. The patient tolerated the procedure well. In summary, the procedure was successful PTCA and stent of a 90% stenosis of a proximal RCA stenosis. Cardiac catheterization reveals critical lesions in the RCA with possible RV thrombus as well as a subtotally occluded LAD and diagonal vessel. LV function revealed mild anterior wall hypokinesis. Given these findings, we will aggressively hydrate the patient given his renal insufficiency. He will be brought to the recovery room where sheath were removed manually. He will need to remain on aspirin indefinitely and Plavix for at least a year. Depending on his renal function, we will bring him back on Sunday for PTCA of a bifurcating LAD and diagonal vessel. Timo Ramos MD
[2017-05-24 03:12] VITALS: RESP 20
--- NOTE | 2017-05-24 06:14 | HP ---
ADDENDUM This is an addendum to the history and physical examination dictated by Dr. Samantha Junior. The patient's chief complaints, vital signs, diagnostic data reviewed. The patient presented with left-sided chest pain radiating down the left arm. Pain scale was 6-8/10. Pain radiated to left arm and left neck. The patient seen and examined in room 273, bed two. The patient is seen lying in the bed.. Refer to the detailed history and physical examination of the medical center director by Dr. Junior.. IMPRESSION AND PLAN: 1. Acute non-ST elevation myocardial infarction with elevated CPK and troponin. 2. Acute coronary syndrome. 3. Unstable angina. 4. Hypertension. 5. Mild normocytic anemia. 6. Eosinophilia. 7. Underlying chronic kidney disease stage III. 8. Hyperglycemia. 9. Elevated CPK. 10. Status post angioplasty and stent placement of the 90% right coronary artery stenosis with thrombus. 11. 90% left anterior descending artery stenosis and diagonal stenosis. 12. Age indeterminate inferior infarct. 13. Insulin-requiring diabetes mellitus. 14. History of hyperlipidemia. 15. History of anemia. 16. Status post lumbar spinal laminectomy. 17. History of cholelithiasis. 18. Right renal parapelvic cyst. 19. L2-L4 lumbar laminectomy. 20. History of spinal stenosis and lumbar herniated disc. 21. Status post lumbar decompression laminectomy and . Plan at this time, the patient is admitted post angioplasty to Telemetry. The patient has been ordered repeat labs, repeat cardiac enzyme, hemoglobin A1c, lipid panel, repeat CBC. Cardiology consultation ordered. The patient is resumed on his medications of Antivert 25 mg three times a day, aspirin 81 mg daily, Humalog medium dose sliding scale coverage a.c. and at bedtime. The patient is also ordered Lipitor 40 mg daily, Lopressor 25 mg twice a day. The patient was given Plavix 600 mg in the ER. The patient is on Plavix 75 mg, IV fluid 0.9 normal saline at 100 mL an hour. The patient has been ordered repeat EKG. The patient has been ordered echo with Doppler. At present, the patient will be continued on the above therapeutic intervention. The patient will be stabilized on the Telemetry until further Cardiology evaluation and recommendation. The patient was explained about the details of his medical condition, diagnosis, test results explained to the patient at length. All questions and concerned answered examination. Please refer to the detail history and physical examination done my the medical center director today. Dictated and electronically signed, not read. Vernon Schuster MD
[2017-05-24 06:17] VITALS: TEMP 97.7; O2SAT 97
[2017-05-24 06:38] LABS: ALB/GLOB RATIO 1.2 (1.1-1.8); ALBUMIN 3.8 g/dL (3.0-4.8); BASO # 0.04 K/mm3 (0.0-2.0); BASO % 0.6 % (0.0-3.0); BILIRUBIN,DIRECT 0.4 mg/dL (0.0-0.4); EOS # 1.7 (0.0-0.7); EOS % 24.6 % (1.5-5.0); GRAN # 3.42 (1.4-6.5); GRAN % 50.7 % (50.0-68.0); HEMOGLOBIN 12.4 g/dL (14.0-18.0); LYMPH # 1.1 (1.2-3.4); LYMPH % 16.7 % (22.0-35.0); MAGNESIUM 1.6 mg/dL (1.7-2.2); MEAN CELL VOLUME 89.4 fl (80.0-105.0); MEAN CORPUSCULAR HEMOGLOBIN 29.9 pg (25.0-35.0); MEAN CORPUSCULAR HGB CONC 33.4 g/dl (31.0-37.0); MONO # 0.5 (0.1-0.6); MONO % 7.4 % (1.0-6.0); RBC 4.15 10^6/uL (3.5-6.1); RED CELL DISTRIBUTION WIDTH 12.5 % (11.5-14.5); WHITE BLOOD COUNT 6.8 10^3/ul (4.5-11.0)
[2017-05-24] MEDS: Insulin Lispro (humaLOG) MEDIUM Coverage SC SCH (07:57)
[2017-05-24 07:59] VITALS: BP 151/80; PULSE 69
[2017-05-24] MEDS: Magnesium Sulfate 2 GM in Sodium Chloride 0.9% 100 ML IVPB SCH ×2 (08:32→10:18)
--- NOTE | 2017-05-24 10:04 | PN ---
DATE: 05/24/2017 CARDIOLOGY FOLLOWUP SUBJECTIVE: The patient is chest pain free. PHYSICAL EXAMINATION: VITAL SIGNS: Blood pressure 151/50, the heart rate in the 70s. NECK: Negative JVD. LUNGS: Without rales. HEART: With S1, S2. EXTREMITIES: Without edema. LABORATORY DATA: Creatinine is 1.5 compared to 1.7 pre-procedure, hemoglobin is 12.4. IMPRESSION: 1. Status post [id number] myocardial infarction. 2. Status post percutaneous transluminal coronary angioplasty and stent of an right coronary artery with a drug-eluting stent. 3. Multivessel coronary artery disease. 4. Diabetes mellitus. 5. Renal insufficiency. PLAN: Given these findings, the patient is doing well post PTCA and stent. The patient can be discharged today. We will bring him back next week on Sunday for PTCA and stent of bifurcating LAD and diagonal vessel. The patient should be discharged on aspirin, Plavix, beta blockers as well as statin therapy. Timo Ramos MD
--- NOTE | 2017-05-24 15:11 | CP.PCM.DIS ---
Provider - Provider Date of Admission: 05/23/17 13:52 Attending physician: Vernon Schuster MD Consults: Dr Ramos Time Spent in preparation of Discharge (in minutes): 35 Diagnosis - Discharge Diagnosis (1) NSTEMI (non-ST elevated myocardial infarction) Status: Acute (2) Stented coronary artery Status: Acute Hospital Course - Lab Results Lab Results: Most Recent Lab Values WBC 6.8 10^3/ul (4.5-11.0) 05/24/17 05:30 RBC 4.15 10^6/uL (3.5-6.1) 05/24/17 05:30 Hgb 12.4 g/dL (14.0-18.0) L 05/24/17 05:30 Hct 37.1 % (42.0-52.0) L 05/24/17 05:30 MCV 89.4 fl (80.0-105.0) 05/24/17 05:30 MCH 29.9 pg (25.0-35.0) 05/24/17 05:30 MCHC 33.4 g/dl (31.0-37.0) 05/24/17 05:30 RDW 12.5 % (11.5-14.5) 05/24/17 05:30 Plt Count 213 10^3/uL (120.0-450.0) 05/24/17 05:30 MPV 10.0 fl (7.0-11.0) 05/24/17 05:30 Gran % 50.7 % (50.0-68.0) 05/24/17 05:30 Lymph % (Auto) 16.7 % (22.0-35.0) L 05/24/17 05:30 [place] % (Auto) 7.4 % (1.0-6.0) H 05/24/17 05:30 Eos % (Auto) 24.6 % (1.5-5.0) H 05/24/17 05:30 Baso % (Auto) 0.6 % (0.0-3.0) 05/24/17 05:30 Gran # 3.42 (1.4-6.5) 05/24/17 05:30 Lymph # 1.1 (1.2-3.4) L 05/24/17 05:30 [place] # 0.5 (0.1-0.6) 05/24/17 05:30 Eos # 1.7 (0.0-0.7) H 05/24/17 05:30 Baso # 0.04 K/mm3 (0.0-2.0) 05/24/17 05:30 Neutrophils % (Manual) 54 % (50.0-70.0) 05/23/17 11:00 Lymphocytes % (Manual) 20 % (22.0-35.0) L 05/23/17 11:00 Monocytes % (Manual) 4 % (1.0-6.0) 05/23/17 11:00 Eosinophils % (Manual) 22 % (0.0-3.0) H 05/23/17 11:00 Platelet Evaluation Normal (NORMAL) 05/23/17 11:00 PT 13.2 SECONDS (9.4-12.5) H 05/23/17 11:00 INR 1.14 (0.93-1.08) H 05/23/17 11:00 APTT 30.8 Seconds (25.1-36.5) 05/23/17 11:00 Sodium 136 mmol/L (132-148) 05/24/17 05:30 Potassium 4.6 mmol/L (3.6-5.0) 05/24/17 05:30 Chloride 103 mmol/L (98-107) 05/24/17 05:30 Carbon Dioxide 26 mmol/L (21-33) 05/24/17 05:30 Anion Gap 12 (10-20) 05/24/17 05:30 BUN 22 mg/dL (7-21) H 05/24/17 05:30 Creatinine 1.5 mg/dl (0.8-1.5) 05/24/17 05:30 Est GFR ( Amer) 54 05/24/17 05:30 Est GFR (Non-Af Amer) 45 05/24/17 05:30 POC Glucose (mg/dL) 113 mg/dL (65-110) H 05/24/17 11:30 Random Glucose 247 mg/dL (70-110) H 05/24/17 05:30 Hemoglobin A1c 9.4 % (4.2-6.5) H 05/24/17 05:30 Calcium 9.0 mg/dL (8.4-10.5) 05/24/17 05:30 Magnesium 1.6 mg/dL (1.7-2.2) L 05/24/17 05:30 Total Bilirubin 0.9 mg/dL (0.2-1.3) 05/24/17 05:30 Direct Bilirubin 0.4 mg/dL (0.0-0.4) 05/24/17 05:30 AST 42 U/L (17-59) 05/24/17 05:30 ALT 34 U/L (7-56) 05/24/17 05:30 Alkaline Phosphatase 67 U/L (38-126) 05/24/17 05:30 Lactate Dehydrogenase 602 U/L (333-699) 05/23/17 11:00 Total Creatine Kinase 307 U/L (35-230) H 05/23/17 21:51 CK-MB (CK-2) 9.3 ng/mL (0.0-3.6) H 05/23/17 21:51 CK-MB (CK-2) % 3.0 % (2.5-3.0) 05/23/17 21:51 Troponin I 4.38 ng/mL H* D 05/23/17 21:51 Total Protein 7.0 g/dL (5.8-8.3) 05/24/17 05:30 Albumin 3.8 g/dL (3.0-4.8) 05/24/17 05:30 Globulin 3.2 gm/dL 05/24/17 05:30 Albumin/Globulin Ratio 1.2 (1.1-1.8) 05/24/17 05:30 Triglycerides 70 mg/dL (35-160) 05/24/17 05:30 Cholesterol 164 mg/dL (130-200) 05/24/17 05:30 LDL Cholesterol Direct 96 mg/dL (0-129) 05/24/17 05:30 HDL Cholesterol 44 mg/dL (29-60) 05/24/17 05:30 - Hospital Course Hospital Course: 81 year old male, whose past medical history includes diabetes, hypertension, low back pain, presents for left sided chest pain that started 9 hours ago. Pt describes it pressure like, 6-8/10, radiating to left neck and left arm. Denies associated sob, diaphoresis, nausea, vomiting, abdominal pain, palpitations. Denies previous such chest pain, trauma at the site, stress test or catheterization. In ED, pt hypertensive with SBP in 160s, trop elevated 1.77, given asa 325 mg, plavix loading dose 600 mg, NTG, Metoprolol 25 [address] on NC[address] Dr Ramos evaluated pt and took to cardiac cath. Pt still c/o chest pain, states that he was in his usual state of health prior to coming to the chest pain this AM. Denies dizziness, headache, abdominal pain, nausea, vomiting, urinary symptoms, heat/cold intolerance. Pt had RCA stent x1. As per Dr Ramos, if renal function is good, pt may go back on Sunday for PTCA of bifurcating LAD and diagonal vessel. Echocardiogram was done in hospital, but is pending results. Will remain on ASA indefinitely and Plavix for 1 year. Discussed thoroughly with patient and family at bedside the medication regimen, strict dietary adherence. Pt to follow up with PMD and Dr Schuster in 1 week. Discharge Exam - Head Exam Head Exam: ATRAUMATIC, NORMOCEPHALIC - Eye Exam Eye Exam: EOMI, PERRL Pupil Exam: PERRL - ENT Exam ENT Exam: Mucous Membranes Moist - Neck Exam Neck exam: Full Rom - Respiratory Exam Respiratory Exam: Clear to PA & Lateral. absent: Chest Wall Tenderness, Respiratory Distress - Cardiovascular Exam Cardiovascular Exam: RRR, +S1, +S2. absent: Systolic Murmur - GI/Abdominal Exam GI & Abdominal Exam: Normal Bowel Sounds, Soft. absent: Distended, Tenderness - Back Exam Back exam: NORMAL INSPECTION - Neurological Exam Neurological exam: Alert, Oriented x3 - Psychiatric Exam Psychiatric exam: Normal Affect, Normal Mood - Skin Skin Exam: Dry, Normal Color, Warm Discharge Plan - Discharge Medications Prescriptions: Clopidogrel [Plavix] 75 mg PO DAILY #30 tab Metoprolol Tartrate [Lopressor] 25 mg PO ACBD #60 tab - Follow Up Plan Condition: CRITICAL Disposition: HOME/ ROUTINE Instructions: Myocardial Infarction (DC), Coronary Artery Disease (DC), Heart Healthy Diet (DC), Heart Catheterization (DC), Coronary Intravascular Stent Placement (DC) Additional Instructions: - Patient to come back on Sunday05/28/17 at 6 AM for PTCA. Instructions given by Mirna from [employer]. - Patient not to eat/drink from 12AM of 05/28/17 until the procedure. - DISCHARGE HOME AFTER CARDIOLOGY CLEARS PATIENT AND AFTER ECHO DONE - FOLLOW UP AND WITHIN 1 WEEK - New prescriptions given to patient. Referrals: Vernon Schuster MD [Staff Provider] - 1 Week (DISCHARGE HOME AFTER CARDIOLOGY CLEARS PATIENT AND AFTER ECHO DONE FOLLOW UP AND WITHIN 1 WEEK DISCHARGE MEDS PER NEW SCRIPTS ) Timo Ramos MD [Staff Provider] - 1 Week (DISCHARGE HOME AFTER CARDIOLOGY CLEARS PATIENT AND AFTER ECHO DONE FOLLOW UP AND WITHIN 1 WEEK DISCHARGE MEDS PER NEW SCRIPTS )
--- NOTE | 2017-05-24 17:10 | CARD ---
APPROVED REPORT EXAM: Two-dimensional and M-mode echocardiogram with Doppler and color Doppler. INDICATION CAD/AMI 2D DIMENSIONS Left Atrium (2D)3.6 (1.6-4.0cm)IVSd1.0 (0.7-1.1cm) Aortic Root (2D)3.6 (2.0-3.7cm)LVDd4.3 (3.9-5.9cm) PWd1.0 (0.7-1.1cm)LVDs2.2 (2.5-4.0cm) FS (%) 49.6 %LVEF (%)81.3 (>50%) M-Mode DIMENSIONS Aortic Cusp Exc.1.60 (1.5-2.0cm) Aortic Valve AI P 1/2 [id number] Mitral Valve MV E Koljzoak59.8cm/sMV A Tnnmwtfi64.8cm/sE/A ratio0.6 TDI Lateral E' Peak V4.87cm/sMedial E' Peak V4.09cm/sE/Lateral E'11.5 E/Medial E'13.6 Pulmonary Valve PV Peak Kueepeap72.3cm/sPV Peak Grad.2mmHg Tricuspid Valve TR Peak Zprgmavx743pp/sRAP ZYNPTLCF5xhPwET Peak Gr.16mmHg [id number] LEFT VENTRICLE The left ventricle is normal size. There is normal left ventricular wall thickness. Left ventricle systolic function is borderline. There is normal LV segmental wall motion. Transmitral Doppler flow pattern is Grade I-abnormal relaxation pattern. RIGHT VENTRICLE The right ventricle is normal size. There is normal right ventricular wall thickness. The right ventricular systolic function is normal. ATRIA The left atrium size is normal. The right atrium size is normal. AORTIC VALVE The aortic valve is mildly sclerotic. There is trace aortic regurgitation. MITRAL VALVE The mitral valve is moderately thickened. There is no mitral valve regurgitation noted. TRICUSPID VALVE The tricuspid valve is normal in structure. GREAT VESSELS The aortic root displays moderate to severe sclerocalcific changes of the aortic root. The IVC was not visualized. PERICARDIAL EFFUSION There is no pericardial effusion. <Conclusion> The left ventricle is normal size. There is normal left ventricular wall thickness. Left ventricle systolic function is borderline. There is normal LV segmental wall motion. Transmitral Doppler flow pattern is Grade I-abnormal relaxation pattern. There is trace aortic regurgitation. The aortic root displays moderate to severe sclerocalcific changes of the aortic root.
--- NOTE | 2017-05-24 17:52 | CARD ---
APPROVED REPORT EKG Measurement Heart [id number] GA 210P86 [id number] <Conclusion> Sinus rhythm with 1st degree AV block Left axis deviation Inferior infarct, age undetermined Abnormal ECG
--- NOTE | 2017-05-24 18:03 | CARD ---
APPROVED REPORT EKG Measurement Heart [id number] IN 182P65 [id number] <Conclusion> Poor data quality, interpretation may be adversely affected Sinus bradycardia Inferior infarct, age undetermined Abnormal ECG
--- NOTE | 2017-05-24 18:09 | CARD ---
APPROVED REPORT EKG Measurement Heart [id number] 216P70 [id number] <Conclusion> Sinus rhythm with 1st degree AV block Inferior infarct, age undetermined Abnormal ECG
--- NOTE | 2017-05-24 18:11 | CARD ---
APPROVED REPORT EKG Measurement Heart [id number] ID [id number] <Conclusion> Normal sinus rhythm Inferior infarct, age undetermined Abnormal ECG
--- NOTE | 2017-05-25 13:20 | DS ---
The patient was discharged after patient was cleared by Cardiology for discharge. The patient was seen in room 273, bed 2. The patient is out of bed to chair with the patient's at bedside. The patient post cardiac catheterization and angioplasty was uneventful. No adverse events noted. Overnight nurse's notes were reviewed. The patient underwent echocardiogram. The patient had no adverse event from the cardiac catheterization. The patient denies any chest pain. Denies any shortness of breath. Denies nausea, vomiting, or diarrhea. Denies any hemoptysis, hematemesis, or melena. Denies headache. Denies visual problems. Denies bleeding. Denies pain. PHYSICAL EXAMINATION: VITAL SIGNS: T-max 98.2. Telemetry shows sinus rhythm, heart rate 64, 70, 71, 59, 69. Blood pressure, in the last 24 hours, ranging from systolic 120s to 140s to 151 and diastolic in 80s and low 90s and 70s. Respirations 20, O2 sat 97%. Intake 1080, output 1300. HEAD: Normocephalic, atraumatic. EENT: Shows pink conjunctivae. Anicteric sclerae. No oropharyngeal lesion. NECK: No neck rigidity. No jugular venous distention. No audible carotid bruit. CHEST: Kyphosis. LUNGS: Shows no rales, crackles, or wheezing. CARDIOVASCULAR: Shows S1, S2, regular rhythm. Questionable soft systolic murmur, left sternal border, right second intercostal space, left second intercostal space. No crackles, rales, or wheezing noted. ABDOMEN: Soft. Positive bowel sounds. No hepatosplenomegaly noted. No costovertebral angle tenderness. No guarding. No rigidity. GENITALIA: Male. RECTAL: Deferred. RIGHT GROIN: Negative. VASCULAR: Palpable pulses. MUSCULOSKELETAL: Shows a body mass index of 25. NEUROLOGIC: The patient is alert, awake, oriented x3. Cranial nerves II-XII intact. Gait examination is independent. DIAGNOSTICS: From 05/24/2017, WBC 6.8, hemoglobin and hematocrit 12.4 and 37.1, platelet 213. The patient still has sodium 136; potassium 4.6; chloride 103; CO2 of 26; anion gap 12; BUN 22; creatinine 1.5; GFR 54; glucose 122, 247, 260, 113, , hemoglobin A1c 9.4, magnesium 1.6. LFTs are normal. Cholesterol 164, LDL 96, peak troponin 4.38. The patient's echocardiogram was done, which was reviewed. EKG was interpreted and reviewed. The patient was cleared for discharge. FINAL DISCHARGE DIAGNOSES: 1. Acute non-ST elevation myocardial infarction. 2. Unstable angina. 3. Acute coronary syndrome. 4. 90% stenosis of the right coronary artery with possible intracoronary thrombus. 5. 50% to 60% stenosis of the takeoff of the obtuse marginal branch of the left circumflex. 6. Subtotal occlusion of the left anterior descending, in the midportion and diagonal branch. 7. Mild anterior wall hypokinesis. 8. Status post successful angioplasty and stent placement of the 90% stenosis of the proximal right coronary artery. 9. Hypertension. 10. Mild normocytic anemia. 11. Lymphopenia and eosinophilia. 12. Status post acute kidney injury. 13. Chronic kidney disease, stage III. 14. Hyperglycemia with uncontrolled diabetes with hemoglobin A1c of 9.4. 15. Hypomagnesemia. 16. Hypercholesterolemia. 17. Borderline left ventricular systolic function. 18. Grade 1 abnormal relaxation pattern. 19. Mildly sclerotic aortic valve. 20. Moderately thickened mitral valve. 21. 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 22. Status post [id number] myocardial infarction. 23. Multivessel coronary artery disease. 24. Left axis deviation. 25. Age indeterminate inferior infarct. 26. Multivessel coronary artery disease. PLAN: At this time, patient is cleared for discharge by Cardiology. DISCHARGE MEDICATIONS: 1. The patient is to resume his insulin at home. 2. Norvasc 5 mg daily. 3. Ecotrin 81 mg daily. 4. Lipitor 80 mg daily. 5. Plavix 75 mg daily. 6. Glucotrol 20 mg twice a day. 7. Lopressor 25 mg twice a day. Patient is discharged home. Discharge followup with Dr. Schuster within [address] Ramos within 1 week. The patient is to be scheduled for repeat angioplasty of other coronary arteries on 05/28/2017, at 6:00 a.m. The patient is also advised to follow up with Dr. Schuster and Dr. Ramos within 1 week. Time spent in the entire discharge process, more than 45 minutes. Dictated and electronically signed, not read. Vernon MD [facility] # [id number]
== END 2017-05-24 12:50 | disposition home or self-care (01) | DRG 247 ==
LOC: ED 10:02 → ERH 13:52 → 2RSO 15:47
PROVIDERS: ADMIT Internal Medicine; ATTEND Internal Medicine
PROC: 027034Z Dilation of Coronary Artery, One Artery with Drug-eluting Intraluminal Device, Percutaneous Approach (ICD-10-PCS; principal; 2017-05-23)
PROC: 4A023N7 Measurement of Cardiac Sampling and Pressure, Left Heart, Percutaneous Approach (ICD-10-PCS; 2017-05-23)
PROC: B2151ZZ Fluoroscopy of Left Heart using Low Osmolar Contrast (ICD-10-PCS; 2017-05-23)
PROC: B2111ZZ Fluoroscopy of Multiple Coronary Arteries using Low Osmolar Contrast (ICD-10-PCS; 2017-05-23)
PROC: 3E033PZ Introduction of Platelet Inhibitor into Peripheral Vein, Percutaneous Approach (ICD-10-PCS; 2017-05-23)
DX: I21.4 Non-ST elevation (NSTEMI) myocardial infarction (principal); I25.110 Atherosclerotic heart disease of native coronary artery with unstable angina pectoris; I12.9 Hypertensive chronic kidney disease with stage 1 through stage 4 chronic kidney disease, or unspecified chronic kidney disease; N18.3 Chronic kidney disease, stage 3 (moderate); E11.22 Type 2 diabetes mellitus with diabetic chronic kidney disease; E11.65 Type 2 diabetes mellitus with hyperglycemia; N28.1 Cyst of kidney, acquired; D72.1 Eosinophilia; D64.9 Anemia, unspecified; E78.5 Hyperlipidemia, unspecified; K80.20 Calculus of gallbladder without cholecystitis without obstruction; M51.26 Other intervertebral disc displacement, lumbar region; M48.00 Spinal stenosis, site unspecified; Z79.84 Long term (current) use of oral hypoglycemic drugs; Z79.82 Long term (current) use of aspirin

== ENCOUNTER 2017-05-28 06:27 | Day surgery (SDC) | payer MEDICARE, OTHER ==
[2017-05-25 08:39] VITALS: BMI 25.2
[2017-05-28] MEDS ORDERED: Phenylephrine 10 mg/ml Inj ONE (06:56)
[2017-05-28] MEDS ORDERED: Iodixanol 320 MG/ML 200 ML BOTTLE IV ONE (06:56)
[2017-05-28] MEDS ORDERED: Iodixanol 320 MG/ML 100 ML BOTTLE IV ONE (06:56)
[2017-05-28] MEDS ORDERED: HEPARIN SODIUM/NS 2,000 ML IV ONE (06:56)
[2017-05-28] MEDS ORDERED: Iohexol 350mgl/ml 50 ML ONE (06:56)
[2017-05-28] MEDS ORDERED: Lidocaine 2% Inj (20ml) ONE (06:56)
[2017-05-28] MEDS ORDERED: Sodium Bicarbonate (8.4%) 50 Meq Syringe IVP ONE (07:07)
[2017-05-28 07:16] LABS: BASO # 0.03 K/mm3 (0.0-2.0); BASO % 0.5 % (0.0-3.0); EOS # 1.7 (0.0-0.7); EOS % 25.9 % (1.5-5.0); GRAN # 2.65 (1.4-6.5); HEMOGLOBIN 12.2 g/dL (14.0-18.0); LYMPH # 1.7 (1.2-3.4); LYMPH % 25.3 % (22.0-35.0); MEAN CELL VOLUME 90.1 fl (80.0-105.0); MEAN CORPUSCULAR HEMOGLOBIN 30.3 pg (25.0-35.0); MEAN CORPUSCULAR HGB CONC 33.6 g/dl (31.0-37.0); MONO # 0.6 (0.1-0.6); MONO % 8.3 % (1.0-6.0); PLATELET COUNT 213 10^3/uL (120.0-450.0); RBC 4.03 10^6/uL (3.5-6.1); RED CELL DISTRIBUTION WIDTH 11.9 % (11.5-14.5); WHITE BLOOD COUNT 6.6 10^3/ul (4.5-11.0)
[2017-05-28 07:25] LABS: INR 1.06 (0.93-1.08); PARTIAL THROMBOPLASTIN TIME 29.1 Seconds (25.1-36.5); PROTHROMBIN TIME 12.2 SECONDS (9.4-12.5)
[2017-05-28 07:33] LABS: CALCIUM 9.4 mg/dL (8.4-10.5)
[2017-05-28] MEDS ORDERED: Acetylcysteine 20% Inhal Sol (30ml) ONE (07:51)
[2017-05-28 07:53] LABS: EOSINOPHIL 26 % (0.0-3.0); LYMPHOCYTE 19 % (22.0-35.0); MONOCYTE 4 % (1.0-6.0); NEUTROPHIL 51 % (50.0-70.0)
[2017-05-28 07:54] LABS: PLATELET ESTIMATE NORMAL (NORMAL)
[2017-05-28 09:43] LABS: CALCIUM 9.1 mg/dL (8.4-10.5)
[2017-05-28] MEDS ORDERED: Midazolam 2 MG/2 ML VIAL ONE ×2 (10:09→10:22)
[2017-05-28] MEDS ORDERED: Sodium Chloride 0.9% 1,000 ML IV SCH (11:15)
--- NOTE | 2017-05-28 14:15 | CARD ---
APPROVED REPORT EKG Measurement Heart [id number] CT 230P78 [id number] <Conclusion> Sinus bradycardia with 1st degree AV block LAD Inferior infarct, age undetermined NSSTW changes
[2017-05-28] MEDS ORDERED: INSULIN GLARGINE RECOMBINA SC SCH (22:00)
[2017-05-28] MEDS ORDERED: Insulin Detemir 100 units/ml Vial (Levemir) SC SCH (22:00)
--- NOTE | 2017-05-28 22:42 | CARDCATH ---
PROCEDURE DATE: 05/28/2017 HISTORY: The patient is an 81-year-old male who presents with a non-STEMI who was found to have multivessel CAD. The patient underwent successful PTCA and stent of an RCA last week. Because of his renal insufficiency, he was brought back for stage PTCA of a subtotal occluded LAD and diagonal vessel. His initial creatinine this morning was 2.2. After aggressive hydration, repeat creatinine was 2.1 from his baseline of 1.7. I discussed risks, benefits of delaying procedure with this patient and family. However, after understanding the risk of renal toxicity with contrast dye, they insisted we attempt to try to open up the arteries with minimal contrast. PROCEDURE: The right femoral artery was cannulated with a 7-Sammarinese sheath. There were no complications. I performed moderate sedation which included the presence of an independent trained observer that assisted in monitoring the patient's level of consciousness and physiologic status. After administration of Versed and fentanyl, my intraservice time was 30 minutes. A 7-Sammarinese guider was placed in the ostium of the left main artery. Initial angiogram using 4 mL of contrast revealed a subtotal occluded LAD and diagonal vessel. Multiple attempts of using three wires to cross the subtotal occluded LAD were successful in going across the total occlusion. However, passive total occlusion could not help differentiate with a wire whether with wire penetrate the intimal or remain intraluminal. After attempted using three wires, repeat angiogram using another 4 mL of dye revealed no change in the anatomy. The procedure was aborted due to inability to use any more contrast dye. Manual compressor was used to close the femoral artery site. The patient tolerated the procedure well. In summary, the procedure was unsuccessful for attempt at crossing the total occluded LAD with minimal amount of contrast. The patient tolerated the procedure. Given these findings, we will bring the patient back in a week or two after we can documented that his renal function has improved. Timo Ramos MD
--- NOTE | 2017-05-29 04:28 | HP ---
HISTORY OF PRESENT ILLNESS: The patient is an 81-year-old male who was admitted from the cardiac catheterization. The patient underwent the patient unsuccessful attempted PTCA of the occluded LAD, unable to be done because of elevated creatinine and the patient was admitted postcardiac catheterization for observation over 24 hours. THE PATIENT'S CODE STATUS: Full code. LIVING WILL ADVANCE DIRECTIVE: None. ALLERGIES: NONE. MEDICATIONS: The patient's home medications are Norvasc 5 mg daily, Ecotrin 81 mg daily, Lipitor 80 mg daily, Drisdol 2000 units daily, Plavix 75 mg daily, Glucotrol 10 mg twice a day, Lantus 5 units at bedtime, Lopressor 25 mg twice a day, and Plavix 75 mg daily. PAST MEDICAL HISTORY: The patient's past medical history significant for hypertension, history of dyslipidemia, history of chronic back pain, history of chest pain, history of non-ST elevation myocardial infarction, history of left right shoulder and lumbar surgeries, history of acute coronary syndrome; also significant for history of unstable angina, history of normocytic anemia, history of chronic kidney disease stage III, history of hyperglycemia, history of successful angioplasty and stent placement of the right to 90% stenosis of the right coronary artery with thrombus, history of 90% left anterior descending artery stenosis and diagonal stenosis, history of age indeterminate inferior infarct, history of lumbar and spinal laminectomy, history of cholelithiasis, history of right renal parapelvic cyst, history of L2-L4 lumbar laminectomy, history of spinal stenosis and lumbar herniated disk, history of lumbar decompression laminectomy; history of lymphopenia and eosinophilia, history of mild anterior wall hypokinesis, history of 50% to 60% stenosis of the takeoff of the obtuse marginal branch of the left circumflex, history of subtotal occlusion of the left anterior descending in the midportion of the diagonal branch, history of acute kidney injury, history of chronic kidney disease stage III, history of uncontrolled insulin-requiring diabetes mellitus with hemoglobin A1c of 9.4, history of hypomagnesemia, history of hypercholesteremia, history of grade 1 abnormal relaxation pattern, history of moderately thickened mitral valve, mildly sclerotic aortic valve, history of severe sclerocalcific changes of the aortic valve, history of multivessel coronary artery disease, history of left axis deviation, history of hearing deficit, history of lumbar degenerative disk disease, history of right rotator cuff surgery, and history of occasional alcohol use. SOCIAL HISTORY: Positive occasional alcohol use. Denies smoking. Denies drug use. Denies communicable transmissible disease. The patient was recently discharged on 05/24/2017 and readmitted today. PHYSICAL EXAMINATION: GENERAL: The patient is seen in room 274, bed 2. The patient is lying in the bed post cardiac catheterization. VITAL SIGNS: Height is 5 feet 8 inches, weight is 166, and BMI is 25.2. T-max is 97.9. Telemetry shows sinus rhythm, heart rate in 50s and 60s. Blood pressure 170/86, 143/76, 151/75, 150/74, respirations 14, O2 saturation is on 99%. HEAD: Normocephalic and atraumatic. HEENT: Shows pink conjunctivae. Anicteric sclerae anicteric sclerae. No oropharyngeal lesion. NECK: No rigidity. No jugular venous distention. No audible carotid bruit. CHEST: Kyphosis. LUNGS: Shows no rales, crackles, or wheezing. CARDIOVASCULAR: Shows S1 and S2, regular rhythm. Questionable soft systolic murmur in left sternal border and right second intercostal space. ABDOMEN: Soft. Positive bowel sounds. No hepatosplenomegaly noted. No costovertebral angle tenderness. No guarding. No rigidity. No rebound tenderness. GENITALIA: Male. Positive right groin dressing noted. RECTAL: Deferred. EXTREMITIES: Positive pulses palpable. No pitting edema. No Homans' sign. No clubbing. No cyanosis. VASCULAR: Palpable pulses. MUSCULOSKELETAL: Shows a body mass index of 25.2. NEUROLOGIC: Gait examination is not tested. Cranial nerves II through XII limited. DIAGNOSTICS: From 05/28/2017, WBC 6.6, hemoglobin/hematocrit 12.2/36.3, and platelet 213, eosinophil 26. PT/PTT is normal. Sodium 141, potassium 4.5, chloride 104, CO2 24, anion gap 17, BUN 39, creatinine 2.2, GFR is 35, and glucose 190. Cholesterol 158 and LDL 88. Repeat BUN and creatinine 37 and 2.1. Blood type A+. EKG done shows sinus rhythm, left axis deviation, age indeterminate inferior infarct, sinus bradycardia. IMPRESSION: 1. Multivessel coronary artery disease. 2. Recent non-ST elevation myocardial infarction. 3. Status post attempted unsuccessful percutaneous transluminal coronary angioplasty of the occluded left anterior descending artery. 4. Hypertension. 5. Sinus bradycardia. 6. Normocytic anemia. 7. Eosinophilia. 8. Lymphopenia. 9. Chronic kidney disease stage IV. 10. Hyperglycemia. 11. Sinus bradycardia. 12. Left axis deviation. 13. Age indeterminate inferior wall myocardial infarction. PLAN: At this time, the patient is to be admitted to extended recovery by Dr. Timo Ramos. The patient has been ordered repeat CBC and CMP in the morning. The patient is started on aspirin 81 mg p.o. daily, Humalog medium dose sliding scale coverage, Lipitor 40 mg daily, Plavix 75 mg daily, IV fluid 0.9 normal saline at 100 mL an hour. The patient was on Lantus 5 units subcutaneous at bedtime. The patient is on Plavix 75 mg daily, vitamin D 2000 units International Units daily. The patient at present will be admitted to Extended Recovery. The patient will be continued on the above therapeutic intervention. The patient's further management will be depending upon the patient's clinical condition, hemodynamic status, and as per the patient response to therapeutic intervention, as per Cardiology recommendation. The patient has been placed on bedrest at present. The patient is on consistent carbohydrate diet. Repeat EKG ordered. At present, the patient and the family was explained by Dr. Timo Ramos about the attempted angioplasty, which was not successful, which he acknowledged and understand. All questions and concerned answered. Dictated and electronically signed, not read. Vernon Schuster MD
[2017-05-29 06:39] LABS: BASO # 0.04 K/mm3 (0.0-2.0); BASO % 0.6 % (0.0-3.0); EOS % 14.5 % (1.5-5.0); GRAN # 4.38 (1.4-6.5); GRAN % 60.9 % (50.0-68.0); HEMOGLOBIN 12.7 g/dL (14.0-18.0); LYMPH # 1.3 (1.2-3.4); LYMPH % 17.5 % (22.0-35.0); MEAN CELL VOLUME 88.2 fl (80.0-105.0); MEAN CORPUSCULAR HEMOGLOBIN 30.5 pg (25.0-35.0); MEAN CORPUSCULAR HGB CONC 34.5 g/dl (31.0-37.0); MEAN PLATELET VOLUME 9.9 fl (7.0-11.0); MONO # 0.5 (0.1-0.6); MONO % 6.5 % (1.0-6.0); RBC 4.17 10^6/uL (3.5-6.1); RED CELL DISTRIBUTION WIDTH 12.3 % (11.5-14.5); WHITE BLOOD COUNT 7.2 10^3/ul (4.5-11.0)
[2017-05-29 07:03] LABS: CALCIUM 9.3 mg/dL (8.4-10.5)
[2017-05-29 07:06] VITALS: RESP 20; O2SAT 98
[2017-05-29] MEDS: Insulin Lispro (humaLOG) MEDIUM Coverage SC SCH ×2 (08:22→12:55)
[2017-05-29] MEDS ORDERED: Cholecalciferol 1,000 INTLU TAB PO SCH (10:00)
[2017-05-29] MEDS ORDERED: Non Formulary Medication (Cholecalciferol (Vitamin D3) [Vitamin D3] 1,000 UNIT) PO SCH (10:00)
[2017-05-29] MEDS ORDERED: Insulin Detemir 100 units/ml Vial (Levemir) SC SCH (10:00)
[2017-05-29 12:09] VITALS: BP 170/112; TEMP 98.2
[2017-05-29 14:20] VITALS: PULSE 67
--- NOTE | 2017-05-29 14:51 | CARD ---
APPROVED REPORT EKG Measurement Heart [id number] CT 206P79 [id number] <Conclusion> Normal sinus rhythm with 1st degree AVB Left anterior fascicular block Inferior infarct, age undetermined NSSTW changes
--- NOTE | 2017-05-29 15:25 | DS ---
LOCATION: The patient is seen in room 274, bed 2. HISTORY OF PRESENT ILLNESS: The patient is seen lying in the bed. The patient is comfortable. No adverse events documented. Telemetry shows sinus rhythm. Heart rate in the 70s, 60s, and 80s. REVIEW OF SYSTEMS: A 13-system review is negative for chest pain, negative for shortness of breath. Negative for nausea, vomiting, and diarrhea. Negative for bleeding. PHYSICAL EXAMINATION: GENERAL: The patient is seen lying in the bed. VITAL SIGNS: T-max 97.8, blood pressure 165/90, 154/79, 167/81, respirations 18 to 20, and O2 saturation 98% to 99%. HEAD: Normocephalic and atraumatic. HEENT: Shows pinkish conjunctivae. Anicteric sclerae. No oropharyngeal lesion. NECK: No jugular venous distention. No audible carotid bruits. CHEST: Kyphosis. LUNGS: Shows no rales, crackles, or wheezing. CARDIOVASCULAR: S1 and S2. Regular rhythm. ABDOMEN: Soft. Positive bowel sounds. No hepatosplenomegaly. No guarding. No rigidity. No rebound tenderness. GENITALIA: Male. Right groin examination shows no hematoma. EXTREMITIES: Positive pulses of the right lower extremity and left lower extremity. VASCULAR: Palpable pulses. MUSCULOSKELETAL: Shows a body mass index of 24. NEUROLOGIC: The patient is alert, awake, and oriented x3. Cranial nerves II through XII intact. Gait examination is not tested. DIAGNOSTICS: From 05/29/2017, WBC 7.2, hemoglobin/hematocrit 12.7/36.8, and platelets 219. Sodium 139, potassium 4.4, chloride 103, CO2 26, anion gap 14, BUN 29, creatinine 1.9, down from 2.2, GFR 41, glucose 266, 181, and calcium 9.3. Blood type A+. FINAL IMPRESSION, PLAN, AND DISCHARGE DIAGNOSES: 1. Multivessel coronary artery disease. 2. Recent non-ST elevation myocardial infarction. 3. Unsuccessful attempt for angioplasty of the total occluded left anterior descending artery. 4. Status post angioplasty and stent placement of the right coronary artery. 5. Sinus bradycardia. 6. Left axis deviation. 7. Age indeterminate inferior infarct. 8. History of hypertension, diabetes mellitus, history of dyslipidemia, history of hypovitaminosis D. 9. Chronic kidney disease stage III versus early stage IV. 1. Multivessel coronary artery disease. 2. Recent non-ST elevation myocardial infarction. 3. Status post attempted unsuccessful percutaneous transluminal coronary angioplasty of the occluded left anterior descending artery. 4. Hypertension. 5. Sinus bradycardia. 6. Normocytic anemia. 7. Eosinophilia. 8. Lymphopenia. 9. Chronic kidney disease stage IV. 10. Hyperglycemia. 11. Sinus bradycardia. 12. Left axis deviation. 13. Age indeterminate inferior wall myocardial infarction. PLAN: At this time, the patient will be discharged home after cleared by Cardiology. Discharge followup with Dr. Schuster and Dr. Ramos within 1 week. Discharge medications as per updated ambulatory orders. Copy of moderate carbohydrate and heart healthy diet copy to the patient upon discharge. DISCHARGE MEDICATIONS: Aspirin 81 mg daily, Norvasc 5 mg daily, Lipitor 80 mg daily, vitamin D3 2000 units daily, Plavix 75 mg daily, Glucotrol 10 mg twice a day, Lantus 5 units at bedtime, and Lopressor 25 mg twice a day. Time spent in the entire discharge process more than 45 minutes. Dictated and electronically signed, not read. Vernon Schuster MD [email or web address]
--- NOTE | 2017-05-29 19:08 | PN ---
DATE: 05/29/2017 SUBJECTIVE: The patient is without symptoms. OBJECTIVE: VITAL SIGNS: Stable. NECK: Negative JVD. LUNGS: Without rales. HEART: Reveal S1, S2. EXTREMITIES: Without edema. LABORATORY DATA: Creatinine is down to 1.9. IMPRESSION: 1. Status post multivessel percutaneous transluminal coronary angioplasty. 2. Hypercholesterolemia. 3. Diabetes mellitus. 4. Renal insufficiency. Given these findings, the patient is scheduled for discharge. We will follow up as an outpatient and check the creatinine. Once the patient is back to baseline, we will bring the patient back for angioplasty of his LAD. Timo Ramos MD
== END 2017-05-29 15:05 | disposition home or self-care (01) ==
LOC: CATH 06:27 → 2RSO 11:27 → CATH 05-29 15:05
PROVIDERS: ATTEND Internal Medicine Cardiovascular Disease
DX: I25.10 Atherosclerotic heart disease of native coronary artery without angina pectoris (principal); I12.9 Hypertensive chronic kidney disease with stage 1 through stage 4 chronic kidney disease, or unspecified chronic kidney disease; N18.4 Chronic kidney disease, stage 4 (severe); D64.9 Anemia, unspecified; E11.22 Type 2 diabetes mellitus with diabetic chronic kidney disease; E11.65 Type 2 diabetes mellitus with hyperglycemia; E78.00 Pure hypercholesterolemia, unspecified; G89.29 Other chronic pain; I25.2 Old myocardial infarction; M48.061 Spinal stenosis, lumbar region without neurogenic claudication; Z79.02 Long term (current) use of antithrombotics/antiplatelets; Z79.4 Long term (current) use of insulin; Z79.82 Long term (current) use of aspirin; Z79.899 Other long term (current) drug therapy; Z86.79 Personal history of other diseases of the circulatory system; Z95.5 Presence of coronary angioplasty implant and graft; Z98.890 Other specified postprocedural states; R00.1 Bradycardia, unspecified; D72.1 Eosinophilia; D72.810 Lymphocytopenia
CPT/HCPCS: 36415 ×2; 80048 ×2; 80061; 82948; 85025 ×2; 85610; 85730; 86850; 86900; 93005 ×2; 99152; 99153; C1725; C1769 ×3; C1887; C1894; C9600; J0583; J1644; J2250; J3010; J7030; J7040; Q9967

== ENCOUNTER 2018-01-23 09:04 | Emergency (ER) | payer MEDICARE ==
[2018-01-23 09:05] VITALS: BMI 25.2
== END 2018-01-23 09:51 | disposition left against medical advice (07) ==
LOC: ED 09:04
DX: Z02.89 Encounter for other administrative examinations (principal); Z00.00 Encounter for general adult medical examination without abnormal findings

== ENCOUNTER 2018-02-13 11:37 | Emergency (ER) | payer MEDICARE ==
[2018-02-13 11:37] VITALS: BMI 25.2
== END 2018-02-13 12:43 | disposition left against medical advice (07) ==
LOC: ED 11:37
DX: Z02.89 Encounter for other administrative examinations (principal); R21 Rash and other nonspecific skin eruption

== ENCOUNTER 2018-06-03 12:12 | Emergency (ER) | payer MEDICARE, OTHER ==
[2018-06-03 12:31] VITALS: BMI 25.0
[2018-06-03 12:37] VITALS: BP 142/78; RESP 18; TEMP 97.7
--- NOTE | 2018-06-03 12:59 | ED PDOC ---
Arrival/HPI - General Chief Complaint: Upper Extremity Problem/Injury Time Seen by Provider: 06/03/18 12:30 Historian: Patient - History of Present Illness Narrative History of Present Illness (Text): 06/03/18 12:55 82 year old male, with past medical history of diabetes, hypertension, and low back pain, presents to the ED for evaluation of right anterior shoulder pain since 3 weeks. Patient informs exacerbation of pain with movement. Patient states daily activity and reports currently experiencing mild left anterior shoulder discomfort. Patient denies any recent trauma or injury. Patient denies any neck pain, back pain, numbness/tingling, paresthesias, chest pain, shortness of breath or any other complaints. Patient informs some kind of right shoulder surgery in 2013. Patient denies any history of smoking cigarettes or drinking alcohol. Time/Duration: > week Symptom Onset: Gradual Symptom Course: Unchanged Quality: Aching Activities at Onset: Light Context: Home Associated Symptoms (Text): 06/03/18 13:43 Three-week history of worsening right shoulder pain. No injury or trauma. No neck pain. No chest pain palpitations or dyspnea. No back pain. No numbness tingling or paresthesias. No weakness. No injury or trauma. Past Medical History - Provider Review Nursing Documentation Reviewed: Yes - Past History Past History: No Previous - Infectious Disease Hx of Infectious Diseases: None - Tetanus Immunization Tetanus Immunization: Unknown - Cardiac Hx Cardiac Disorders: Yes Hx Hypertension: Yes - Pulmonary Hx Respiratory Disorders: No - Neurological Hx Neurological Disorder: No - HEENT Hx HEENT Disorder: No ([place] uses hearing air left ear) - Renal Hx Renal Disorder: No - Endocrine/Metabolic Hx Endocrine Disorders: Yes Hx Diabetes Mellitus Type 2: Yes - Hematological/Oncological Hx Blood Disorders: No - Integumentary Hx Dermatological Disorder: No - Musculoskeletal/Rheumatological Hx Musculoskeletal Disorders: Yes (lumbar disc displacement) - Gastrointestinal Hx Gastrointestinal Disorders: No - Genitourinary/Gynecological Hx Genitourinary Disorders: No - Psychiatric Hx Psychophysiologic Disorder: No Hx Substance Use: No - Past Surgical History Past Surgical History: No Previous - Surgical History Hx Orthopedic Surgery: Yes (right shoulder torn rotator cuff) - Anesthesia Hx Anesthesia Reactions: No Hx Malignant Hyperthermia: No - Suicidal Assessment Feels Threatened In Home Enviroment: No Family/Social History - Physician Review Nursing Documentation Reviewed: Yes Family/Social History: No Known Family HX Smoking Status: Never Smoked Hx Alcohol Use: No Hx Substance Use: No Hx Substance Use Treatment: No Allergies/Home Meds Allergies/Adverse Reactions: Allergies No Known Allergies Allergy (Verified 06/03/18 12:31) Home Medications: Home Meds Medication Instructions Recorded Confirmed Atorvastatin Calcium 80 mg PO DAILY 11/18/16 06/03/18 GlipiZIDE [Glucotrol] 10 mg PO BID 11/18/16 06/03/18 amLODIPine [Norvasc] 5 mg PO DAILY 11/18/16 06/03/18 Cholecalciferol (Vitamin D3) 1,000 unit PO DAILY 05/25/17 06/03/18 [Vitamin D3] Insulin Glargine, Recombina 5 unit SC HS 05/25/17 06/03/18 [Lantus] Review of Systems - Physician Review All systems were reviewed & negative as marked: Yes - Review of Systems Respiratory: absent: SOB, Cough Cardiovascular: absent: Chest Pain Gastrointestinal: absent: Abdominal Pain, Diarrhea, Nausea Genitourinary Male: absent: Dysuria Musculoskeletal: Arthralgias (right shoulder pain). absent: Back Pain, Neck Pain Neurological: absent: Headache, Dizziness, Focal Weakness Physical Exam Vital Signs Reviewed: Yes Vital Signs Temp Pulse Resp BP Pulse Ox 06/03/18 12:36 97.7 F 58 L 18 142/78 95 Temperature: Afebrile Blood Pressure: Normal Pulse: Regular Respiratory Rate: Normal Appearance: Positive for: Well-Appearing, Non-Toxic, Uncomfortable Pain Distress: Mild Mental Status: Positive for: Alert and Oriented X 3 Finger Stick Blood Glucose: 204 - Systems Exam Head: Present: Atraumatic, Normocephalic Pupils: Present: PERRL Extroacular Muscles: Present: EOMI Conjunctiva: Present: Normal Neck: Present: Normal Range of Motion. No: MIDLINE TENDERNESS, Paraspinal Tenderness Respiratory/Chest: Present: Clear to Auscultation, Good Air Exchange. No: Respiratory Distress, Accessory Muscle Use, Tender to Palpation Cardiovascular: Present: Regular Rate and Rhythm, Normal S1, S2. No: Murmurs Back: Present: Normal Inspection Upper Extremity: Present: NORMAL PULSES, Tenderness (tenderness to palpation anteriorly to right shoulder. Pain with internal and external rotation, adduction or abduction of right shoulder. ), Neurovascularly Intact, Other (Surgical scar noted to right anterior shoulder). No: Cyanosis, Edema, Normal ROM, Swelling, Erythema, Deformity Lower Extremity: Present: Normal Inspection. No: Edema Neurological: Present: GCS=15, CN II-XII Intact, Speech Normal, Motor Func Grossly Intact Skin: Present: Warm, Dry, Normal Color. No: Rashes Psychiatric: Present: Alert, Oriented x 3, Normal Insight, Normal Concentration Medical Decision Making ED Course and Treatment: 06/03/18 13:06 Impression: 82 year old male presents to the ED for evaluation of right anterior shoulder pain. Plan: -- Toradol -- X-ray of Right Shoulder -- Reassess and disposition Prior Visits: Notes and results from previous visits were reviewed. Progress Notes: 06/03/18 13:48 Range of motion markedly improved and pain markedly improved post Toradol. - RAD Interpretation Radiology Orders: 06/03/18 12:55 SHOULDER RIGHT [RAD] Stat Right shoulder shows no fracture or dislocation. There is calcific bursitis. 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 All medical record entries made by the Scribe were at my direction and personally dictated by me. I have reviewed the chart and agree that the record accurately reflects my personal performance of the history, physical exam, medical decision making, and the department course for this patient. I have also personally directed, reviewed, and agree with the discharge instructions and disposition. Disposition/Present on Arrival - Present on Arrival Any Indicators Present on Arrival: No History of DVT/PE: No History of Uncontrolled Diabetes: No Urinary Catheter: No History of Decub. Ulcer: No History Surgical Site Infection Following: None - Disposition Have Diagnosis and Disposition been Completed?: Yes Diagnosis: Right shoulder strain, Bursitis Disposition: HOME/ ROUTINE Disposition Time: 13:48 Patient Plan: Discharge Patient Problems: Current Active Problems Problem Status Onset Right shoulder strain Acute Condition: IMPROVED Discharge Instructions (ExitCare): Shoulder Instability (DC), Bursitis Additional Instructions: Moist heat. Tylenol as directed on bottle. Follow-up with PMD. Follow up in ER as needed. Forms: [employer] ([employer])
[2018-06-03 14:00] VITALS: PULSE 56; O2SAT 98
--- NOTE | 2018-06-03 14:56 | RAD ---
Date of service: 06/03/2018 PROCEDURE: Radiographs of the Right Shoulder HISTORY: pain COMPARISON: No prior. FINDINGS: BONES: There is no evidence of acute fracture or dislocation. JOINTS: There is widening of the AC joint noted likely due to absorbed of the clavicular head. Degenerative changes are noted at the right shoulder. SOFT TISSUES: There is soft tissue calcification adjacent to the right humeral head suggestive of calcified tendinitis OTHER FINDINGS: None. IMPRESSION: No evidence of acute fracture or dislocation. Moderate osteoarthritic degenerative changes. Calcified tendinitis.
--- NOTE | 2018-06-03 18:29 | CARD ---
APPROVED REPORT Date of service: 06/03/2018 EKG Measurement Heart [id number] <Conclusion> Sinus bradycardia with premature atrial complexes Otherwise normal ECG
== END 2018-06-03 14:00 | disposition home or self-care (01) ==
LOC: ED 12:12
DX: S46.911A Strain of unspecified muscle, fascia and tendon at shoulder and upper arm level, right arm, initial encounter (principal); X58.XXXA Exposure to other specified factors, initial encounter; I10 Essential (primary) hypertension; E11.9 Type 2 diabetes mellitus without complications
CPT/HCPCS: 73030; 82948; 93005; 96372; 99282; J1885

== ENCOUNTER 2018-06-13 07:19 | Outpatient (CLI) | payer MEDICARE | END 2018-06-13 07:20 | disposition home or self-care (01) | LOC: CARDIO 07:19 | DX: I25.10 Atherosclerotic heart disease of native coronary artery without angina pectoris (principal) ==

== ENCOUNTER 2018-06-17 06:02 | Day surgery (SDC) | payer MEDICARE ==
[2018-06-14 12:10] VITALS: BMI 23.7
[2018-06-17 06:59] LABS: BASO # 0.04 K/mm3 (0.0-2.0); BASO % 0.6 % (0.0-3.0); EOS # 1.4 (0.0-0.7); EOS % 21.6 % (1.5-5.0); HEMOGLOBIN 12.1 g/dL (14.0-18.0); LYMPH # 2.1 (1.2-3.4); LYMPH % 32.7 % (22.0-35.0); MEAN CORPUSCULAR HEMOGLOBIN 29.7 pg (25.0-35.0); MEAN CORPUSCULAR HGB CONC 33.3 g/dl (31.0-37.0); MONO # 0.5 (0.1-0.6); MONO % 7.3 % (1.0-6.0); PLATELET COUNT 211 10^3/uL (120.0-450.0); RBC 4.08 10^6/uL (3.5-6.1); RED CELL DISTRIBUTION WIDTH 12.4 % (11.5-14.5); WHITE BLOOD COUNT 6.3 10^3/uL (4.5-11.0)
[2018-06-17 07:06] LABS: CALCIUM 9.2 mg/dL (8.4-10.5)
[2018-06-17 07:09] LABS: INR 1.17; PARTIAL THROMBOPLASTIN TIME 32.8 Seconds (26.9-38.3); PROTHROMBIN TIME 13.2 SECONDS (9.4-12.5)
[2018-06-17] MEDS ORDERED: Lidocaine 2% Inj (20ml) ONE (07:17)
[2018-06-17] MEDS ORDERED: Phenylephrine 10 mg/ml Inj ONE (07:18)
[2018-06-17] MEDS ORDERED: Iohexol 350mgl/ml 50 ML ONE (07:18)
[2018-06-17] MEDS ORDERED: Iodixanol 320 MG/ML 100 ML BOTTLE IV ONE (07:18)
[2018-06-17] MEDS ORDERED: Iodixanol 320 MG/ML 200 ML BOTTLE IV ONE (07:18)
[2018-06-17 08:03] LABS: BASOPHIL 1 % (0.0-1.0); EOSINOPHIL 26 % (0.0-3.0); LYMPHOCYTE 30 % (22.0-35.0); MONOCYTE 4 % (1.0-6.0); NEUTROPHIL 39 % (50.0-70.0); PLATELET ESTIMATE NORMAL (NORMAL)
[2018-06-17] MEDS ORDERED: Midazolam 2 MG/2 ML VIAL ONE (08:11)
[2018-06-17] MEDS ORDERED: Sodium Chloride 0.9% 1,000 ML IV SCH (08:45)
[2018-06-17 08:53] VITALS: TEMP 97.1
--- NOTE | 2018-06-17 09:50 | CON ---
DATE: 06/17/2018 CARDIAC CATHETERIZATION HISTORY: The patient is an 82-year-old male, who presents with an abnormal stress test. The patient's past medical history includes documented coronary artery disease and PTCA and stent in the past. He also suffers from diabetes mellitus, hypertension, renal insufficiency. He is to experience exertional dyspnea, and because of this, cardiac catheterization was recommended. PROCEDURE: Left heart catheterization with coronary arteriography and left ventriculogram. The right femoral artery was cannulated with 6-Divehi sheath. There were no complications. I performed moderate sedation, which included the presence of an independent trained observer that assisted in monitoring the patient's level of consciousness and physiologic status. After administration of Versed and fentanyl, my intra-service time was 15 minutes. Findings on catheterization revealed a left ventricle that contracted normally. Estimated ejection fraction is 50-55%. The left main artery was unremarkable. The LAD was occluded in its proximal portion which is chronic. The circumflex artery and obtuse marginal branches revealed mild intimal irregularities that were free of significant disease. The right coronary artery was a dominant vessel and revealed a patent stent in its proximal portion. Angio-Seal was used to close the femoral artery site. The patient tolerated the procedure well. In summary, the procedure revealed a chronically occluded LAD, which was well known. The stent in the RCA is patent. LV function is normal. Given these findings, the patient has single-vessel CAD with a chronically occluded LAD. His treatment will be continued medical therapy. Timo Ramos MD
--- NOTE | 2018-06-17 10:15 | CARD ---
APPROVED REPORT Date of service: 06/17/2018 EKG Measurement Heart [id number] <Conclusion> Sinus bradycardia with 1st degree AV block Otherwise normal ECG
[2018-06-17 10:21] VITALS: RESP 19
[2018-06-17 10:59] VITALS: O2SAT 99
[2018-06-17 16:08] VITALS: BP 126/70; PULSE 58
== END 2018-06-17 16:10 | disposition home or self-care (01) ==
LOC: CATH 06:02
PROVIDERS: ATTEND Internal Medicine Cardiovascular Disease
DX: I25.10 Atherosclerotic heart disease of native coronary artery without angina pectoris (principal); I25.82 Chronic total occlusion of coronary artery; I10 Essential (primary) hypertension; I44.0 Atrioventricular block, first degree; N28.9 Disorder of kidney and ureter, unspecified; E11.9 Type 2 diabetes mellitus without complications; Z79.4 Long term (current) use of insulin; Z95.5 Presence of coronary angioplasty implant and graft
CPT/HCPCS: 36415; 80048; 80061; 85025; 85610; 85730; 86850; 86900; 93005; 93458; 99152; C1760; C1769; C2629; J1644; J2250; J2370; J3010; J7030; Q9966

== ENCOUNTER 2018-06-27 14:13 | Emergency (ER) | payer MEDICARE ==
[2018-06-27 14:23] VITALS: BMI 24.3
[2018-06-27 14:29] VITALS: BP 156/81; PULSE 63; RESP 18; TEMP 97.4; O2SAT 99
[2018-06-27] MEDS ORDERED: TDAP Vaccine 0.5 mL Syr IM ONE (16:34)
--- NOTE | 2018-06-27 16:35 | RAD ---
PROCEDURE: Right Hand Radiographs. HISTORY: LAC/r/o FB COMPARISON: None. FINDINGS: BONES: No acute fracture or destructive bony lesion identified. JOINTS: No dislocation identified. Degenerative joint space narrowing seen throughout the interphalangeal joints diffusely as well as the carpal metacarpal joints, particularly the basal joint. Limited medial cyst inferior subluxation of the proximal 1st metacarpal bone is seen relative to the trapezium. SOFT TISSUES: No retained radiodense foreign body appreciable. OTHER FINDINGS: None. IMPRESSION: No acute fracture or dislocation identified. Degenerative changes are seen throughout the digits and carpometacarpal articulations. Limited degenerative subluxation is noted at the basal joint as discussed above. No retained radiodense foreign body appreciated.
--- NOTE | 2018-06-27 16:37 | ED PDOC ---
Arrival/HPI - General Chief Complaint: Abnormal Skin Integrity Time Seen by Provider: 06/27/18 15:16 Historian: Patient - History of Present Illness Narrative History of Present Illness (Text): 06/27/18 16:38 Patient is a 82 year old male whose past medical history includes diabetes, and hypertension, who presents to the Emergency department complaining of a right hand laceration that occurred last night. Patient reports that he was working on his car last night when a piece of metal punctured his right hand. His hand was subsequently oozing blood throughout the night. He states that although he doesn't see anything in the wound, he does feel like something is in there. Patient denies any other injuries, any paresthesia of his hand, or any other complaints. Time/Duration: Other (Yesterday night) Symptom Onset: Sudden Symptom Course: Unchanged Context: Other (working on his car) Past Medical History - Provider Review Nursing Documentation Reviewed: Yes - Past History Past History: No Previous - Infectious Disease Hx of Infectious Diseases: None - Tetanus Immunization Tetanus Immunization: Unknown - Cardiac Hx LA: Yes Hx Hypertension: Yes Hx Pacemaker: No Other/Comment: Cardiac cath x 1 stent - Pulmonary Hx Respiratory Disorders: No - Neurological Hx Paralysis: No - HEENT Hx HEENT Disorder: No ([place] uses hearing air left ear) - Renal Hx Renal Disorder: No - Endocrine/Metabolic Hx Endocrine Disorders: Yes Hx Diabetes Mellitus Type 2: Yes - Hematological/Oncological Hx Blood Transfusions: No Hx Blood Transfusion Reaction: No - Integumentary Hx Dermatological Disorder: No - Musculoskeletal/Rheumatological Hx Musculoskeletal Disorders: Yes (lumbar disc displacement) - Gastrointestinal Hx Gastrointestinal Disorders: No - Genitourinary/Gynecological Hx Genitourinary Disorders: Yes - Psychiatric Hx Emotional Abuse: No Hx Physical Abuse: No Hx Substance Use: No - Past Surgical History Past Surgical History: No Previous - Surgical History Hx Cardiac Catheterization: Yes (x 1 stent) - Anesthesia Hx Anesthesia: Yes Hx Anesthesia Reactions: No Hx Malignant Hyperthermia: No - Suicidal Assessment Feels Threatened In Home Enviroment: No Family/Social History - Physician Review Nursing Documentation Reviewed: Yes Family/Social History: No Known Family HX Smoking Status: Never Smoked Hx Alcohol Use: Yes (OCC RED WINE) Hx Substance Use: No Hx Substance Use Treatment: No Allergies/Home Meds Allergies/Adverse Reactions: Allergies No Known Allergies Allergy (Verified 06/27/18 14:23) Home Medications: Home Meds Medication Instructions Recorded Confirmed RX: Atorvastatin Calcium 80 mg PO QAM 11/18/16 06/27/18 RX: amLODIPine [Norvasc] 5 mg PO QAM 11/18/16 06/27/18 RX: Cholecalciferol (Vitamin D3) 1,000 unit PO DAILY 05/25/17 06/27/18 [Vitamin D3] RX: Insulin Glargine, Recombina 5 unit SC HS 05/25/17 06/27/18 [Lantus] Dorzolamide HCl/Pf [Dorzolamide 2% 1 drop EACHEYE DAILY 06/14/18 06/27/18 Eye Drop] Gabapentin [Neurontin] 400 mg PO HS 06/14/18 06/27/18 Insulin Lispro [Humalog (Insulin 5 unit SQ TID PRN 06/14/18 06/27/18 Lispro)] RX: Aspirin [Ecotrin] 81 mg PO QAM 06/14/18 06/27/18 RX: Clopidogrel [Plavix] 75 mg PO QAM 06/14/18 06/27/18 Tamsulosin [Flomax] 0.4 mg PO DAILY 06/14/18 06/27/18 Timolol [Betimol 5 ml] 1 drop BOTHEYES DAILY 06/14/18 06/27/18 Review of Systems - Review of Systems Constitutional: absent: Fevers Musculoskeletal: absent: Myalgias, Other (Hand paresthesia) Skin: Laceration Physical Exam Vital Signs Reviewed: Yes Vital Signs Temp Pulse Resp BP Pulse Ox 06/27/18 14:28 97.4 F L 63 18 156/81 H 99 Temperature: Afebrile Blood Pressure: Hypertensive Pulse: Regular Respiratory Rate: Normal Appearance: Positive for: Well-Appearing Mental Status: Positive for: Alert and Oriented X 3 - Systems Exam Head: Present: Atraumatic, Normocephalic Pupils: Present: PERRL Extroacular Muscles: Present: EOMI Conjunctiva: Present: Normal Mouth: Present: Moist Mucous Membranes Neck: Present: Normal Range of Motion Cardiovascular: Present: Regular Rate and Rhythm, Normal S1, S2. No: Murmurs Upper Extremity: Present: Normal ROM (FROM of right wrist and hand. Thumb is able to oppose each finger.), NORMAL PULSES, Capillary Refill < 2s, Other (sensation intact, motor strength 5/5.) Skin: Present: Laceration (Right hand puncture in center of palm, not currently bleeding.) Psychiatric: Present: Alert, Oriented x 3, Normal Insight, Normal Concentration Medical Decision Making ED Course and Treatment: 06/27/18 16:38 Impression: 82 year old male complaining of a right hand laceration that occurred last night and was oozing blood. Plan: -- Right hand X-ray -- TDAP vaccine -- Keflex -- Reassess and disposition Prior Visits: Notes and results from previous visits were reviewed. Progress Notes: 06/27/18 16:42 Patient left the Emergency department without completing treatment which included irrigating the wound, giving a TDAP vaccine, and a prescription for Keflex - RAD Interpretation Radiology Orders: 06/27/18 15:22 HAND RIGHT 3 VIEWS [RAD] Stat - Medication Orders Current Medication Orders: Tetanus/Reduced Diphtheria/Acell Pertussis (Boostrix Vaccine Inj) 0.5 ml IM .ONCE ONE Stop: 06/27/18 16:35 - Scribe Statement The provider has reviewed the documentation as recorded by the Scriblatonya Gaona Provider Scribe Attestation: All medical record entries made by the Scribe were at my direction and personally dictated by me. I have reviewed the chart and agree that the record accurately reflects my personal performance of the history, physical exam, medical decision making, and the department course for this patient. I have also personally directed, reviewed, and agree with the discharge instructions and disposition. Disposition/Present on Arrival - Present on Arrival Any Indicators Present on Arrival: No History of DVT/PE: No History of Uncontrolled Diabetes: No Urinary Catheter: No History of Decub. Ulcer: No History Surgical Site Infection Following: None - Disposition Have Diagnosis and Disposition been Completed?: Yes Diagnosis: Puncture wound of hand, right Disposition: LEFT W/O TREATMENT - ER ONLY Disposition Time: 16:35 Patient Plan: Discharge (patient left ED ), Other (plan was to d/c pt but pt left w/o completing tx) Patient Problems: Current Active Problems Problem Status Onset Puncture wound of hand, right Acute Condition: STABLE Discharge Instructions (ExitCare): Wound Care (DC) Print Language: JAPANESE Prescriptions: Cephalexin [cephalexin] 500 mg PO QID #28 cap Forms: [employer] ([employer])
== END 2018-06-27 16:35 | disposition left against medical advice (07) ==
LOC: ED 14:13
DX: S61.431A Puncture wound without foreign body of right hand, initial encounter (principal); W26.8XXA Contact with other sharp object(s), not elsewhere classified, initial encounter; E11.9 Type 2 diabetes mellitus without complications; I10 Essential (primary) hypertension

== ENCOUNTER 2018-07-03 09:35 | Emergency (ER) | payer MEDICARE ==
[2018-07-03 09:51] VITALS: BP 163/89; PULSE 66; RESP 18; TEMP 97.9; O2SAT 95; BMI 25.0
--- NOTE | 2018-07-03 10:09 | ED PDOC ---
Arrival/HPI - General Chief Complaint: Finger,Hand,&Wrist Historian: Patient - History of Present Illness Narrative History of Present Illness (Text): 07/03/18 10:03 82 y/o female, pmh including renal disease/htn/dm/nstemia, nkda, last tetanus doesn't remember, c/o here for the tetanus shot. Pt. stated that he had the rt. hand skin laceration about 2 weeks ago, wound healed and no pain, here for the tetanus shot as he didn't stay for entire course. pt. has no numbness or tingling, no headache or night sweat, no rash, no palpitation, no other medical or psychological complaints. Past Medical History - Provider Review Nursing Documentation Reviewed: Yes - Past History Past History: No Previous - Infectious Disease Hx of Infectious Diseases: None - Tetanus Immunization Tetanus Immunization: Unknown - Cardiac Hx Cardiac Disorders: Yes Hx WI: Yes Hx Hypertension: Yes Other/Comment: Cardiac cath x 1 stent - Pulmonary Hx Respiratory Disorders: No - Neurological Hx Neurological Disorder: No - HEENT Hx HEENT Disorder: No ([facility] uses hearing air left ear) - Renal Hx Renal Disorder: No - Endocrine/Metabolic Hx Endocrine Disorders: Yes Hx Diabetes Mellitus Type 2: Yes - Hematological/Oncological Hx Blood Disorders: No - Integumentary Hx Dermatological Disorder: No - Musculoskeletal/Rheumatological Hx Musculoskeletal Disorders: Yes (lumbar disc displacement) - Gastrointestinal Hx Gastrointestinal Disorders: No - Genitourinary/Gynecological Hx Genitourinary Disorders: Yes - Psychiatric Hx Psychophysiologic Disorder: No Hx Substance Use: No - Past Surgical History Past Surgical History: No Previous - Surgical History Hx Cardiac Catheterization: Yes (x 1 stent) - Anesthesia Hx Anesthesia: Yes Hx Anesthesia Reactions: No Hx Malignant Hyperthermia: No - Suicidal Assessment Feels Threatened In Home Enviroment: No Family/Social History - Physician Review Nursing Documentation Reviewed: Yes Family/Social History: Unknown Family HX Smoking Status: Never Smoked Hx Alcohol Use: Yes (OCC RED WINE) Hx Substance Use: No Hx Substance Use Treatment: No Allergies/Home Meds Allergies/Adverse Reactions: Allergies No Known Allergies Allergy (Verified 07/03/18 09:51) Home Medications: Home Meds Medication Instructions Recorded Confirmed Atorvastatin Calcium 80 mg PO QAM 11/18/16 07/03/18 amLODIPine [Norvasc] 5 mg PO QAM 11/18/16 07/03/18 Cholecalciferol (Vitamin D3) 1,000 unit PO DAILY 05/25/17 07/03/18 [Vitamin D3] Insulin Glargine, Recombina 5 unit SC HS 05/25/17 07/03/18 [Lantus] Aspirin [Ecotrin] 81 mg PO QAM 06/14/18 07/03/18 Clopidogrel [Plavix] 75 mg PO QAM 06/14/18 07/03/18 Dorzolamide HCl/Pf [Dorzolamide 2% 1 drop EACHEYE DAILY 06/14/18 07/03/18 Eye Drop] Gabapentin [Neurontin] 400 mg PO HS 06/14/18 07/03/18 Insulin Lispro [Humalog (Insulin 5 unit SQ TID PRN 06/14/18 07/03/18 Lispro)] Tamsulosin [Flomax] 0.4 mg PO DAILY 06/14/18 07/03/18 Timolol [Betimol 5 ml] 1 drop BOTHEYES DAILY 06/14/18 07/03/18 Review of Systems - Review of Systems Constitutional: absent: Fatigue, Fevers Eyes: absent: Vision Changes ENT: absent: Hearing Changes Respiratory: absent: SOB, Cough Cardiovascular: absent: Chest Pain Gastrointestinal: absent: Abdominal Pain, Diarrhea, Nausea, Vomiting Musculoskeletal: absent: Arthralgias, Back Pain, Neck Pain, Joint Swelling, Myalgias Skin: absent: Rash, Pruritis, Skin Lesions, Laceration, Abscess, Ulcer, Cellulitis Neurological: absent: Headache, Dizziness Psychiatric: absent: Anxiety, Depression, Suicidal Ideation Physical Exam Vital Signs Reviewed: Yes Vital Signs Temp Pulse Resp BP Pulse Ox 07/03/18 09:50 97.9 F 66 18 163/89 H 95 Temperature: Afebrile Blood Pressure: Hypertensive Pulse: Regular Respiratory Rate: Normal Appearance: Positive for: Well-Appearing, Non-Toxic, Comfortable Pain Distress: None Mental Status: Positive for: Alert and Oriented X 3 - Systems Exam Head: Present: Atraumatic, Normocephalic Pupils: Present: PERRL Extroacular Muscles: Present: EOMI Conjunctiva: Present: Normal Mouth: Present: Moist Mucous Membranes Neck: Present: Normal Range of Motion Respiratory/Chest: Present: Clear to Auscultation, Good Air Exchange. No: Respiratory Distress, Accessory Muscle Use Cardiovascular: Present: Regular Rate and Rhythm, Normal S1, S2. No: Murmurs Abdomen: No: Tenderness, Distention, Peritoneal Signs Back: Present: Normal Inspection Upper Extremity: Present: Normal Inspection, Other (Rt. hand: no tenderness or swelling, visible healed wound noted on the rt. palm with no cellulitis or ulcers, FROM without limitation, sensation intact, motor 5/5, +DPPT pulses, capillary refill< 2 seconds, neurovascular intact. ). No: Cyanosis, Edema Lower Extremity: Present: Normal Inspection. No: Edema Neurological: Present: GCS=15, CN II-XII Intact, Speech Normal Skin: Present: Warm, Dry, Normal Color. No: Rashes Psychiatric: Present: Alert, Oriented x 3, Normal Insight, Normal Concentration Medical Decision Making ED Course and Treatment: 07/03/18 10:21 -tdap ordered. -bed side sonogram perform and no visible foreign bodies on the healed wound. -Discharge home with education on follow up with your own pmd and hand specialist within 2 days, return to the ER for any new or worsening signs or symptoms. 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 Disposition/Present on Arrival - Present on Arrival Any Indicators Present on Arrival: No History of DVT/PE: No History of Uncontrolled Diabetes: No Urinary Catheter: No History of Decub. Ulcer: No History Surgical Site Infection Following: None - Disposition Have Diagnosis and Disposition been Completed?: Yes Diagnosis: Need for tetanus, diphtheria, and acellular pertussis (Tdap) vaccine Disposition: HOME/ ROUTINE Disposition Time: 10:23 Patient Plan: Discharge Condition: GOOD Additional Instructions: -Discharge home with education on follow up with your own pmd and hand specialist within 2 days, return to the ER for any new or worsening signs or symptoms. Referrals: Kimo Smith MD [Staff Provider] - Follow up with primary Oscar Carrera MD [Staff Provider] - Follow up with primary Forms: TRA (Slovak), WORK NOTE
[2018-07-03] MEDS ORDERED: TDAP Vaccine 0.5 mL Syr IM ONE (10:14)
== END 2018-07-03 10:35 | disposition home or self-care (01) ==
LOC: ED 09:35
DX: Z23 Encounter for immunization (principal)